=== PATIENT | male | born 1950 | race Caucasian/White ===

== ENCOUNTER → 2017-06-21 | Outpatient (CLI) | payer BC, MEDICARE ==
--- NOTE | 2017-06-23 10:04 | P.ARTDOP ---
Arterial Doppler LOWER EXTREMITY ARTERIAL DOPPLER: DATE OF SERVICE: 06/21/2017 Reason for study: Left leg pain. Doppler waveforms: Multiphasic throughout bilaterally Pulse volume recording: Normal configuration. Pressure gradients: Only at the foot level. Ankle-brachial indices: Greater than 1 bilaterally. Toe pressures: 78 on the right, 45 on the left Impression: Normal study at the ankle and above. Low digital pressures on the left May suggests distal disease on the left but more likely a vasospastic phenomenon. Clinical correlation recommended..
== END | disposition home or self-care (01) ==
LOC: RADUSWWP 08:00
PROVIDERS: ATTEND Physical Medicine & Rehabilitation
DX: M25.571 Pain in right ankle and joints of right foot (principal); M25.572 Pain in left ankle and joints of left foot; R60.0 Localized edema; M54.16 Radiculopathy, lumbar region; M51.36 Other intervertebral disc degeneration, lumbar region; M51.26 Other intervertebral disc displacement, lumbar region; M47.816 Spondylosis without myelopathy or radiculopathy, lumbar region; M43.17 Spondylolisthesis, lumbosacral region
CPT/HCPCS: 93923

== ENCOUNTER → 2018-01-13 | Outpatient (CLI) | payer MEDICARE ==
[2018-01-13 15:22] LABS: Basophils % (A) 1 %; Eosinophils # (A) 0.1 k/uL (0-0.7); Eosinophils % (A) 2 %; HCT 43.7 % (39.0-53.0); HGB 14.8 gm/dL (13.0-17.5); Lymphocytes # (A) 1.3 k/uL (1.0-4.8); Lymphocytes % (A) 22 %; MCH 29.6 pg (25.0-35.0); MCHC 33.9 g/dL (31.0-37.0); MCV 87.5 fL (80.0-100.0); Mean Platelet Volume 6.9; Monocytes # (A) 0.4 k/uL (0-1.0); Monocytes % (A) 7 %; Neutrophils # (A) 3.6 k/uL (1.3-7.7); Neutrophils % (A) 64 %; Platelet Count 246 k/uL (150-450); RDW 13.3 % (11.5-15.5); WBC 5.6 k/uL (3.8-10.6)
[2018-01-13 15:27] LABS: INR 1.1 (<1.2); Partial Thromboplastin Time 24.2 sec (22.0-30.0); Prothrombin Time 10.6 sec (9.0-12.0)
[2018-01-13 15:30] LABS: Anion Gap 12 mmol/L; Appearance,Urine Cloudy (Clear); Bilirubin,Urine Negative (Negative); Blood Urea Nitrogen 13 mg/dL (9-20); Blood,Urine Negative (Negative); Carbon Dioxide 25 mmol/L (22-30); Chloride 103 mmol/L (98-107); Color,Urine Light Yellow; Glucose 102 mg/dL (74-99); Glucose,Urine (UA) Negative (Negative); Ketones,Urine Negative (Negative); Leukocyte Esterase,Urine Negative (Negative); Mucus,Urine Rare /hpf; Nitrite,Urine Negative (Negative); PH, Urine 6.5 (5.0-8.0); Potassium 4.5 mmol/L (3.5-5.1); Protein,Urine Negative (Negative); RBC,Urine <1 /hpf (0-5); Sodium 140 mmol/L (137-145); Specific Gravity,Urine 1.006 (1.001-1.035); Urobilinogen,Urine <2.0 mg/dL (<2.0); WBC,Urine <1 /hpf (0-5)
== END ==
LOC: LABPAT 14:07
PROVIDERS: ATTEND Orthopaedic Surgery Orthopaedic Surgery of the Spine
DX: Z01.818 Encounter for other preprocedural examination (principal); M48.02 Spinal stenosis, cervical region; Z51.81 Encounter for therapeutic drug level monitoring; Z79.01 Long term (current) use of anticoagulants
CPT/HCPCS: 36415; 80048; 81001; 85025; 85610; 85730; 86850; 86900; 86901; 87070

== ENCOUNTER 2018-01-24 09:49 | Inpatient (IN) | payer MEDICARE ==
[2018-01-17 13:07] VITALS: BMI 29.0
[~2018-01-24 09:49] MED LIST: BACITRACIN 50,000 UNIT, POLYMYXIN B 500,000 UNIT in SODIUM CHLORIDE 0.9% IRRIGATIO 1,00... IRRIGATION ONE; HYDROmorphone 0.5 MG/0.5 ML SYRINGE IVP PRN; LIDOCAINE 1% 20 ML VIAL (10MG/ML) FOR IV START INTRADERMA PRN; ONDANSETRON 4 MG/2 ML VIAL IVP ONE; ceFAZolin IN SWFI 2 GM/20 ML SYRINGE IVP ONE
[2018-01-24] MEDS: LACTATED RINGERS 1,000 ML IV SCH (11:49)
[2018-01-24] MEDS ORDERED: SUCCINYLCHOLINE CHLORIDE 100 MG/5 ML SYR IV ONE (12:41)
[2018-01-24] MEDS ORDERED: ePHEDrine SULFATE/0.9% NACL/PF 50 MG/5 ML SYRINGE IV ONE (12:41)
[2018-01-24] MEDS ORDERED: PROPOFOL 10 MG/ML 20 ML VIAL IV ONE (12:41)
[2018-01-24] MEDS ORDERED: LIDOCAINE 1% INJ 10MG/ML (20 ML MDV) ONE (12:41)
[2018-01-24] MEDS ORDERED: DEXAMETHASONE SOD PHOS (MDV) 100 MG/10 ML VIAL ONE (12:41)
[2018-01-24] MEDS ORDERED: NEOSTIGMINE 1 MG/ML 10 ML VIAL ONE (12:41)
[2018-01-24] MEDS ORDERED: fentaNYL (PF) 50 MCG/ML 2 ML AMP ONE (12:41)
[2018-01-24] MEDS ORDERED: ROCURONIUM BROMIDE 10 MG/ML 10 ML VIAL IV ONE (12:41)
[2018-01-24] MEDS ORDERED: GLYCOPYRROLATE 0.2 MG/ML 2 ML VIAL ONE (12:41)
[2018-01-24] MEDS ORDERED: PHENYLEPHRINE-0.9% NACL SYG 1 MG/10 ML SYRINGE ONE (12:41)
[2018-01-24] MEDS ORDERED: MIDAZOLAM 2 MG/2 ML VIAL ONE (12:41)
[2018-01-24] MEDS ORDERED: GELATIN SPONGE,ABSORB (LARGE) 1 EACH SPONGE MISCELLANE ONE (13:19)
[2018-01-24] MEDS ORDERED: BUPIVACAIN-EPI 0.5%-1:200,000 30 ML VIAL SQ ONE ×2 (13:19)
[2018-01-24] MEDS ORDERED: THROMBIN (BOVINE) 5,000 UNIT VIAL MISCELLANE ONE (13:20)
[2018-01-24] MEDS ORDERED: LACTATED RINGERS 1,000 ML IV ONE ×2 (13:48→15:03)
[2018-01-24] MEDS ORDERED: HYDROcodone/APAP 5-325MG 1 EACH TAB PO PRN (15:12)
[2018-01-24] MEDS ORDERED: BENZOCAINE/MENTHOL LOZENG 1 EACH LOZENGE MUCOUS MEM PRN (15:12)
[2018-01-24] MEDS ORDERED: ONDANSETRON 4 MG/2 ML VIAL IVP PRN (15:12)
[2018-01-24] MEDS ORDERED: HYDROmorphone 1 MG/ML 1 ML SYRINGE IVP PRN ×2 (15:12)
[2018-01-24] MEDS ORDERED: SODIUM CHLORIDE 0.9% 1,000 ML IV SCH (15:15)
--- NOTE | 2018-01-24 15:19 | P.OP ---
Date of Procedure: 01/24/18 Preoperative Diagnosis: Severe cervical stenosis C3 4 C4 5 C5 6, cervical myelomalacia, early cervical myelopathy, degenerative disc disease, myeloradiculopathy upper extremities, upper extremity weakness Postoperative Diagnosis: Same Anesthesia: GETA Pathology: none sent Condition: stable Disposition: PACU Description of Procedure: BRIEF OPERATIVE NOTE Preoperative Diagnosis:Severe cervical stenosis C3 4 C4 5 C5 6, cervical myelomalacia, early cervical myelopathy, degenerative disc disease, myeloradiculopathy upper extremities, upper extremity weakness Postoperative Diagnosis: Same Procedure: Anterior cervical decompression with discectomy and fusion C3 4 C4 5 C5 6 Placement of interbody graft C3 4 C4 5 C5 6 Application of anterior cervical plate C3 4 5 6 Surgeon: Dr. Sarmiento Patient Services Representative: Sam SHARMA who is present throughout the entire the case persistence during positioning, dissection, exposure, visualization, and all crucial elements of the case as well as closure. Anesthesia: General anesthesia per Dr. Doran Estimated blood loss: Approximately 100 mL Complications: None apparent Components implanted: K2M anterior cervical plate system with 8 screws and glucose interbody allograft bone graft Disposition: To recovery room in good stable condition. OPERATIVE INDICATIONS The patient has had long-standing issues in their neck and upper extremities. He was having some weakness to his left upper extremity and was showing some signs early cervical myelopathy. His imaging showed severe cervical stenosis with evidence of cervical myelomalacia particular at C3 4 with significant stenosis C4 5 C5 6 as well. The patient has been through conservative treatment. We discussed various treatment options including surgery, and the patient wishes to proceed with surgery We discussed the risk, patient's alternatives and benefits of surgery including but not limited to, risk of bleeding risk of infection, risk of need for further surgery, risk of decreased , loss of motion, muscle function, malunion nonunion, hardware failure, nerve damage, paralysis, heart attack, and . OPERATIVE SUMMARY After discussing all the risks, patient alternatives and benefits at length, the patient elected to proceed with surgical intervention, signed informed consent, and presented for their procedure. The patient was seen and examined in the preoperative holding area and the surgical site was marked. The patient was given antibiotics and brought to the operating room. The patient was positioned on the operating room table in a supine position being careful to pad any bony prominences and pressure points. The patient was sedated and intubated by anesthesia in standard fashion. Once the airway and C- spine were stabilized the patient's arms were padded and tucked at her side, with her shoulders gently taped. The head was placed in a donut pad with the neck in good neutral alignment and position. We were careful to maintain the patient's cervical spine and good neutral alignment and position throughout. The patient was prepped and draped in a normal standard fashion. An appropriate timeout and keystone protocol performed. We were able to proceed with the surgery. The local wound area was infiltrated with local anesthetic. An incision was made transversely approximately 2-1/2 cm over the appropriate levels over C4 5. Dissection was taken down subcutaneously to the level of the platysma which was split in line with its fibers. Dissection was taken with a carotid approach, with the trachea and esophagus medial and the carotid sheath laterally. We dissected down to the anterior surface of the vertebral bodies from C3 to see 6. Intraoperative x-ray was taken which showed a marker at the appropriate level at C4 5. With the appropriate level positively confirmed, we were able to proceed with discectomy at the appropriate levels, starting at C3 4 then moving C4 5 and C5 6. All of the operative levels were exposed appropriately. The patient had all their twitches back, and there was no evidence of recurrent laryngeal issue. The wound was copiously irrigated and suctioned dry as had been done periodically throughout the case. At the appropriate level/levels, starting at C3 4 and then at C4 5 and C5 6, I was able to remove the anterior cervical osteophytes with a rongeur and a high- speed bur. I established an annulotomy with an 11 blade scalpel. A discectomy was performed with a combination of pituitary rongeurs, curettes, a high-speed bur, and Kerrison rongeurs. The posterior longitudinal ligament was taken down as were any posterior osteophytes. Note was made of obvious severe cervical stenosis with disc protrusion and herniation posteriorly causing significant stenosis centrally in his hand and bilateral neural foramen. This was remedied with the decompression and discectomy. This gave good central and bilateral foraminal decompression. There is no evidence of any dural tear or leak. The endplates were prepared with a high-speed bur. With the endplates in good parallel position, I was able to size for the appropriate size interbody graft. The wound was irrigated and suctioned dry the graft was prepared and malleted into position. It had good alignment and position with the anterior surface flush with the anterior surface of the vertebral bodies. This was done similarly the appropriate levels first at C3 4 and then at C4 5 and then at C5 6. With the grafts intact, I was able to measure and contour and appropriate sized plate. The plate was positioned at the midline over the appropriate levels from C3 to C6. Screw holes were established with a hand drill and drill guide. Screws were placed in good alignment and position with excellent bony purchase. They were seated under the locking device. The construct was checked and found to be stable. Intraoperative x-ray was taken which showed good alignment and position of the implants at the appropriate levels. There was no evidence of any dural tear or leak. Good hemostasis was maintained. The wound was copiously irrigated and suctioned dry as had been done periodically throughout the case. The platysma was closed with absorbable suture. The subcutaneous tissue was closed. The subcuticular tissue was closed with absorbable suture. The wound was cleaned and dried and dressed appropriately. A soft cervical collar was placed appropriately. The patient was woken up by anesthesia, extubated, transferred back gently to their hospital bed and brought to the recovery room in good stable condition. The patient will be admitted to the hospital for appropriate postoperative care , medical management and monitoring. We will continue to follow them closely about the postoperative course.
[2018-01-24 15:39] VITALS: RESP 16
--- NOTE | 2018-01-24 15:41 | XR ---
EXAMINATION TYPE: XR cervical spine 1V DATE OF EXAM: 01/24/2018 COMPARISON: NONE HISTORY: Hardware placement TECHNIQUE: One view submitted FINDINGS: Suggestion of an ET tube. Postsurgical change with anterior fixation involving the cervical spine appears in near anatomic alignment. Multilevel facet arthropathy noted there suggestion of deg enerative disc disease involving the cervical spine. IMPRESSION: Postsurgical change
[2018-01-24] MEDS ORDERED: ETODOLAC 200 MG CAPSULE PO SCH (21:00)
[2018-01-24] MEDS: ceFAZolin IN SWFI 2 GM/20 ML SYRINGE IVP SCH (22:22)
[2018-01-24 23:05] VITALS: PULSE 96
[2018-01-25] MEDS: ceFAZolin IN SWFI 2 GM/20 ML SYRINGE IVP SCH (04:16)
[2018-01-25 05:54] VITALS: BP 139/73; TEMP 97.8
[2018-01-25] MEDS: LACTATED RINGERS 1,000 ML IV SCH (06:41)
[2018-01-25] MEDS ORDERED: PANTOPRAZOLE 40 MG TABLET PO SCH (07:30)
--- NOTE | 2018-01-25 08:42 | P.DS ---
Providers Date of admission: 01/24/18 11:02 Expected date of discharge: 01/25/18 Attending physician: Beka Sarmiento Primary care physician: Amadeo Whipple - Discharge Diagnosis(es) (1) Cervical stenosis of spinal canal Current Visit: Yes Status: Acute (2) Myelomalacia of cervical cord Current Visit: Yes Status: Acute (3) Cervical myelopathy with cervical radiculopathy Current Visit: Yes Status: Acute (4) Degenerative disc disease, cervical Current Visit: Yes Status: Acute (5) Upper extremity weakness Current Visit: Yes Status: Acute (6) Status post cervical spinal fusion Current Visit: Yes Status: Acute Hospital Course: This is a pleasant 67-year-old male who presented with C3-4, C4-5, and C5-6 severe spinal cervical stenosis with cervical myelomalacia, early cervical myelopathy, cervical degenerative disc disease, upper extremity weakness, and myeloradiculopathy of the upper extremities who failed outpatient conservative therapy. He was admitted for a C3-4, C4-5, and C5-6 anterior cervical decompression and fusion. The patient tolerated the procedure well and did well postoperatively. His pain has been adequately controlled cervical spine. He does continue to have numbness in bilateral hands. He states pain over the left shoulder has improved already postoperatively. He states he was having some difficulty with ambulation and pain in the right foot which has subsided postoperatively. He feels he is ready for discharge. Condition on day of discharge stable. Patient will be discharged home. Patient was cleared preoperatively for surgery by Dr. Whipple. Patient currently denies any nausea, vomiting, fever, or chills. Patient is eating and voiding freely without difficulty. Patient may shower Tegaderm dressing intact. Patient may remove Tegaderm dressing in 3 days and shower without a dressing at that time. Patient should keep Steri-Strips intact and allow them to fall off naturally. Patient should refrain from driving until at least after their first follow-up appointment in the office. Patient should avoid excessive neck flexion, extension, rotation, and lateral sidebending; no overhead lifting; no lifting greater than 10 pounds. Patient given a prescription for [place] 5 mg/325 mg 1 tablet every 4 hours as needed for pain, dispense #42 to discharge. MAPS has been reviewed on 01/25/2018. Overall overdosed wrist score: 190. An "Opiod Start Talking" form has been signed by the patient and myself. Patient will discontinue Tylenol #3 as previously prescribed. He may resume other prescribed home medications. He should avoid anti-inflammatories over the first 6 weeks postoperatively. Physical Exam on day of discharge: Patient is awake, alert, and oriented 3 Vital signs stable Good chest excursion with deep inspiration and expiration Abdomen soft nontender No signs or symptoms of DVT; no calf pain Full range of motion of the cervical spine with adequate flexion, extension, and bilateral rotation Wage Adjuster strength, thumb strength, interosseous strength, biceps strength, triceps strength, and shoulder strength positive sustained bilaterally Soft cervical collar intact Incision is dry and intact with one small [place] of dried blood; no erythema, purulence, or signs of infection Tegaderm dressing and non-stick Telfa intact Procedures: C3-4, C4-5, and C5-6 anterior cervical decompression and fusion. Patient Condition at Discharge: Stable Plan - Discharge Summary Discharge Rx Participant: No New Discharge Prescriptions: New Hydrocodone/Acetaminophen [[place] 5-325] 1 each PO Q4HR PRN #42 tab PRN Reason: Pain No Action Ascorbic Acid [Vitamin C] 500 mg PO DAILY Tamsulosin [Flomax] 0.4 mg PO DAILY Multivitamins, Thera [Multivitamin (formulary)] 1 tab PO DAILY Fexofenadine HCl [Steffi Allergy] 180 mg PO DAILY Omeprazole 20 mg PO DAILY Glucosamine/Chondr Jaime A Sod [Osteo Bi-Flex Caplet] 1 tab PO DAILY Diclofenac Sodium 50 mg PO BID Cinnamon Bark [Cinnamon] 500 mg PO DAILY Cholecalciferol (Vitamin D3) [Vitamin D3] 2,000 unit PO DAILY Aspirin [Adult Low Dose Aspirin EC] 81 mg PO DAILY Discharge Medication List Ascorbic Acid [Vitamin C] 500 mg PO DAILY 01/17/18 [History] Aspirin [Adult Low Dose Aspirin EC] 81 mg PO DAILY 01/17/18 [History] Cholecalciferol (Vitamin D3) [Vitamin D3] 2,000 unit PO DAILY 01/17/18 [History] Cinnamon Bark [Cinnamon] 500 mg PO DAILY 01/17/18 [History] Diclofenac Sodium 50 mg PO BID 01/17/18 [History] Fexofenadine HCl [Steffi Allergy] 180 mg PO DAILY 01/17/18 [History] Glucosamine/Chondr Jaime A Sod [Osteo Bi-Flex Caplet] 1 tab PO DAILY 01/17/18 [ History] Multivitamins, Thera [Multivitamin (formulary)] 1 tab PO DAILY 01/17/18 [History ] Omeprazole 20 mg PO DAILY 01/17/18 [History] Tamsulosin [Flomax] 0.4 mg PO DAILY 01/17/18 [History] Hydrocodone/Acetaminophen [[place] 5-325] 1 each PO Q4HR PRN #42 tab 01/25/18 [Rx] Follow up Appointment(s)/Referral(s): Sam Ordonez, DINORAH [PHYSICIAN MOLD STACKER] - 2 Weeks (Patient may follow-up with Sam Ordonez PA-C or Dr. Saad Sarmiento at [facility] in 2-3 weeks following discharge. ) Activity/Diet/Wound Care/Special Instructions: 1. Patient may shower with Tegaderm dressing intact. 2. Patient may remove Tegaderm dressing in 3 days and shower without a dressing at that time. 3. Patient should keep Steri-Strips intact and allow them to fall off naturally. 4. Patient should refrain from driving until at least after their first follow- up appointment in the office. 5. Patient should avoid excessive cervical flexion, extension, rotation, and sidebending; avoid overhead lifting; no lifting greater than 10 pounds 6. Take medications as prescribed 7. Do not soak in tub
[2018-01-25] MEDS ORDERED: CHOLECALCIFEROL 1,000 UNIT TAB PO SCH (09:00)
[2018-01-25] MEDS ORDERED: ASCORBIC ACID 500 MG TAB PO SCH (09:00)
[2018-01-25] MEDS ORDERED: SENNOSIDES-DOCUSATE SODIUM 1 EACH TAB PO SCH (09:00)
[2018-01-25] MEDS ORDERED: LORATADINE 10 MG TAB PO SCH (09:00)
[2018-01-25] MEDS ORDERED: TAMSULOSIN 0.4 MG CAP.ER.24H PO SCH (09:00)
[2018-01-25] MEDS ORDERED: ASPIRIN 81 MG PO SCH (09:00)
--- NOTE | 2018-01-25 13:22 | XR ---
EXAMINATION TYPE: XR cervical spine 1V DATE OF EXAM: 01/24/2018 COMPARISON: NONE HISTORY: Spinal stenosis TECHNIQUE: Single crosstable lateral view of cervical spine is obtained intraoperatively. FINDINGS: Image is performed for surgical planning and not diagnostic purposes. Metallic pointer is n oted at the C4-C5 disc space. There is moderate anterior spurring and disc space narrowing below this C5-C6 and C6-C7 levels. There is partial visualization of endotracheal tube. IMPRESSION: As above
--- NOTE | 2018-01-26 13:23 | CDI ---
Last Revision, April 2017 Documentation Clarification Form Date: 01/26/18 From: Marielle Darrian Tamar Chisholm, Assessment Consultant Hours-8:30 am & 5 pm Ravi Admit Date: 01/24/2018 11:02:00 AM Patient Name: Raul Enamorado Visit Number: [id number] Discharge Date: 01/25/18 ATTENTION: The Clinical Documentation Specialists (CDI) and [facility] Coding Staff appreciate your assistance in clarifying documentation. Please respond to the clarification below the line at the bottom and electronically sign. The CDI & [facility] Coding staff will review the response and follow-up if needed. Please note: Queries are made part of the Legal Health Record. If you have any questions, please contact the author of this message via ITS. Dr. SANTOS, Documentation in the Operative Report included: With the appropriate level positively confirmed, we were able to proceed with discectomy at appropriate levels, starting at C3 4 then moving C4 5 and C5 6. Pre-Operative Diagnosis: Severe cervical stenosis C3-4, C4-5 & C5-6, cervical myelomalacia, early cervical myelopathy, DDD, myeloradiculopathy upper extremities, upper extremity weakness Postoperative Diagnosis: same Treatment: anterior cervical decompression with discectomy and fusion C3-4, C4- 5 & C5-6; placement of interbody graft C3-4, C4-5 & C5-6; application of anterior cervcal plate C3 4 5 6. In order to capture the severity of condition, please specify the following: Partial discectomy Complete discectomy Other Please note that the discectomy at C3 4 C4 5 and C5 6 were all complete discectomies for purposes of decompression and preparation of the disc space for fusion MTDD
== END 2018-01-25 10:14 | disposition home or self-care (01) | DRG 472 ==
LOC: 2ORMAIN 11:02 → 5ONC 15:14
PROVIDERS: ADMIT Orthopaedic Surgery Orthopaedic Surgery of the Spine; ATTEND Orthopaedic Surgery Orthopaedic Surgery of the Spine
PROC: 0RT30ZZ Resection of Cervical Vertebral Disc, Open Approach (ICD-10-PCS; 2018-01-24)
PROC: 0RG20A0 Fusion of 2 or more Cervical Vertebral Joints with Interbody Fusion Device, Anterior Approach, Anterior Column, Open Approach (ICD-10-PCS; principal; 2018-01-24 13:00)
DX: M48.02 Spinal stenosis, cervical region (principal); G95.89 Other specified diseases of spinal cord; M50.01 Cervical disc disorder with myelopathy, high cervical region; M50.11 Cervical disc disorder with radiculopathy, high cervical region; G47.33 Obstructive sleep apnea (adult) (pediatric); E55.9 Vitamin D deficiency, unspecified; E29.1 Testicular hypofunction; I73.9 Peripheral vascular disease, unspecified; K21.9 Gastro-esophageal reflux disease without esophagitis; M79.671 Pain in right foot; N40.0 Benign prostatic hyperplasia without lower urinary tract symptoms; M54.5 Low back pain; J30.9 Allergic rhinitis, unspecified; H91.90 Unspecified hearing loss, unspecified ear; M19.032 Primary osteoarthritis, left wrist; Z79.82 Long term (current) use of aspirin; Z79.899 Other long term (current) drug therapy; Z88.8 Allergy status to other drugs, medicaments and biological substances; Z83.3 Family history of diabetes mellitus; Z82.49 Family history of ischemic heart disease and other diseases of the circulatory system
CPT/HCPCS: 72020; 86850; 86900; 86901

== ENCOUNTER 2018-02-25 18:47 | Emergency (ER) | payer MEDICARE ==
[2018-02-25 19:22] VITALS: BP 160/90; PULSE 78; RESP 16; TEMP 98.5
--- NOTE | 2018-02-25 19:38 | ED ---
General Adult HPI - General Chief complaint: Extremity Injury, Upper Stated complaint: left shoulder pain Time Seen by Provider: 02/25/18 19:23 Source: patient, RN notes reviewed Mode of arrival: ambulatory Limitations: no limitations - History of Present Illness Initial comments: Patient is a 67-year-old male with chronic shoulder pain who presents the emergency department with complaints of worsened left shoulder pain since this morning. He reports taking one extra strength Tylenol at 10 am and using a pain patch. He reports that he had neck surgery a month ago for a pinched nerve and stenosis in his neck. He also reports feeling a bit "queasy" and anxious. He also reports tingling into both hands that is chronic. He denies any history of heart attacks. Patient denies any recent trauma, fever, chills, shortness of breath, chest pain, back pain, abdominal pain, vomiting, numbness, headaches or visual changes, or any other complaints. - Related Data Home Medications Medication Instructions Recorded Confirmed Ascorbic Acid [Vitamin C] 500 mg PO DAILY 01/17/18 01/24/18 Aspirin [Adult Low Dose Aspirin EC] 81 mg PO DAILY 01/17/18 01/24/18 Cholecalciferol (Vitamin D3) 2,000 unit PO DAILY 01/17/18 01/24/18 [Vitamin D3] Cinnamon Bark [Cinnamon] 500 mg PO DAILY 01/17/18 01/24/18 Diclofenac Sodium 50 mg PO BID 01/17/18 01/24/18 Fexofenadine HCl [Steffi Allergy] 180 mg PO DAILY 01/17/18 01/24/18 Glucosamine/Chondr Jaime A Sod [Osteo 1 tab PO DAILY 01/17/18 01/24/18 Bi-Flex Caplet] Multivitamins, Thera [Multivitamin 1 tab PO DAILY 01/17/18 01/24/18 (formulary)] Omeprazole 20 mg PO DAILY 01/17/18 01/24/18 Tamsulosin [Flomax] 0.4 mg PO DAILY 01/17/18 01/24/18 Previous Rx's Medication Instructions Recorded Hydrocodone/Acetaminophen [[place] 1 each PO Q4HR PRN #42 tab 01/25/18 5-325] Allergies Allergy/AdvReac Type Severity Reaction Status Date / Time celecoxib [From Celebrex] AdvReac BLE EDEMA Verified 02/25/18 19:22 Review of Systems ROS Statement: Those systems with pertinent positive or pertinent negative responses have been documented in the HPI. ROS Other: All systems not noted in ROS Statement are negative. Past Medical History Past Medical History: GERD/Reflux, Osteoarthritis (OA), Prostate Disorder History of Any Multi-Drug Resistant Organisms: None Reported Past Surgical History: Hernia Repair, Orthopedic Surgery Additional Past Surgical History / Comment(s): LASER SX FOR BILAT VARICOSE VEINS. COLONOSCOPY. BILAT CTR Past Anesthesia/Blood Transfusion Reactions: Previous Problems w/ Anesthesia Additional Past Anesthesia/Blood Transfusion Reaction / Comment(s): HAD 2 HOURS EPISODE OF SNEEZING AFTER 2ND CTR Past Psychological History: No Psychological Hx Reported Smoking Status: Never smoker Past Alcohol Use History: None Reported Past Drug Use History: None Reported - Past Family History Sister(s) Family Medical History: Cancer General Exam Limitations: no limitations General appearance: alert, in no apparent distress Head exam: Present: atraumatic, normocephalic Eye exam: Present: normal appearance, PERRL, EOMI ENT exam: Present: normal oropharynx Neck exam: Present: normal inspection, tenderness (Tenderness to palpation over the left-sided musculature.), full ROM Respiratory exam: Present: normal lung sounds bilaterally Cardiovascular Exam: Present: regular rate, normal rhythm, normal heart sounds, other (Radial pulses palpable and strong bilaterally.) GI/Abdominal exam: Present: soft, normal bowel sounds Extremities exam: Present: normal inspection, full ROM, other (Left shoulder exam: Full ROM, no tenderness to palpation.) Back exam: Present: normal inspection Neurological exam: Present: alert, oriented X3, CN II-XII intact Skin exam: Present: warm, dry Course Vital Signs 02/25/18 19:19 Temperature 98.5 F Pulse Rate 78 Respiratory 16 Rate Blood Pressure 160/90 O2 Sat by Pulse 97 Oximetry Medical Decision Making - Medical Decision Making Patient is a 67-year-old male who presents with complaint of chronic left shoulder pain with worsened pain today. There is no need for imaging at this time as there was no recent trauma. He has a history of compressed nerve in his neck and had surgery a month ago. He has an appointment scheduled with his orthopedic doctor early next month. He reports that his surgeon told him not to take ibuprofen or aspirin. He was given Tylenol here. EKG is normal. Case discussed in detail with attending physician Dr. Persaud. Disposition Clinical Impression: Chronic left shoulder pain Disposition: HOME SELF-CARE Condition: Good Instructions: Shoulder Pain (ED) Additional Instructions: Follow-up with PCP in 2 days. Keep your appointment with your orthopedic physician. Return to emergency department if symptoms worsen or any other concerns. Is patient prescribed a controlled substance at d/c from ED?: No Referrals: Amadeo Whipple MD [Primary Care Provider] - 1-2 days Time of Disposition: 20:48
[2018-02-25] MEDS ORDERED: ACETAMINOPHEN TAB 500 MG TAB PO STA (20:07)
== END 2018-02-25 20:57 | disposition home or self-care (01) ==
LOC: EC 18:47
DX: M25.512 Pain in left shoulder (principal); G89.29 Other chronic pain; K21.9 Gastro-esophageal reflux disease without esophagitis; M19.90 Unspecified osteoarthritis, unspecified site; N42.9 Disorder of prostate, unspecified; Z79.82 Long term (current) use of aspirin; Z79.899 Other long term (current) drug therapy; Z88.6 Allergy status to analgesic agent
CPT/HCPCS: 99283

== ENCOUNTER → 2019-10-27 | Outpatient (CLI) | payer MEDICARE ==
[~2019-10-27] MED LIST changes: -BACITRACIN 50,000 UNIT, POLYMYXIN B 500,000 UNIT in SODIUM CHLORIDE 0.9% IRRIGATIO 1,00... IRRIGATION ONE; +DOBUTamine 250 MG in DEXTROSE 5% IN WATER 250 ML IV ONE; +DOBUTamine DRIP for NUC MED 500 MG in DEXTROSE/WATER 1 250ML.BAG IV ONE; -HYDROmorphone 0.5 MG/0.5 ML SYRINGE IVP PRN; -LIDOCAINE 1% 20 ML VIAL (10MG/ML) FOR IV START INTRADERMA PRN; -ONDANSETRON 4 MG/2 ML VIAL IVP ONE; -ceFAZolin IN SWFI 2 GM/20 ML SYRINGE IVP ONE
--- NOTE | 2019-10-27 14:20 | EST ---
EXERCISE STRESS DATE OF SERVICE: 10/27/2019 AGE: 69 SEX: M HT: 72" WT: 224 lbs PROTOCOL: Dobutamine Stress Echo STAGE: DURATION OF EXERCISE: HEART RATE REST: 77 BLOOD PRESSURE REST: 129/95 MAXIMUM HEART RATE ACHIEVED: 137 MAXIMUM BLOOD PRESSURE: 188/30 85% MPHR: 128 100% MPHR: 150 METS: INDICATIONS: Chest pain. STRESS DATA: Heart rate 77, pressure is 139/95 mmHg. Baseline EKG showed sinus mechanism. Dobutamine infusion at a dose of 10 mcg/kg per minute was initiated and increased to 30 mcg/kg per minute per protocol. Max heart rate was 137 which is about 91% of maximum predicted heart rate and maximum blood pressure was 188/30 mmHg. Clinically the patient did not have no symptoms. The EKG did not show any significant ST or T-wave abnormalities. There was some PVCs noted. Analysis and echocardiogram images from parasternal long axis view, parasternal short axis view, apical 4 chamber and apical 2 chamber were obtained as the baseline images, at the peak of the heart rate as well as on recovery. The echocardiogram images did not show any evidence of wall motion abnormalities concerning for ischemia. CONCLUSION: 1. Normal EKG in response to dobutamine. 2. Normal echocardiogram in response to dobutamine. 3. Essentially normal dobutamine stress echocardiogram. MMODL / IJN: [id number] /
== END | disposition home or self-care (01) ==
LOC: RADNMMAIN 09:39
PROVIDERS: ATTEND Internal Medicine
DX: R94.31 Abnormal electrocardiogram [ECG] [EKG] (principal)
CPT/HCPCS: 93351; J1250

== ENCOUNTER → 2019-11-20 | Outpatient (CLI) | payer MEDICARE ==
--- NOTE | 2019-11-20 12:55 | US ---
EXAMINATION TYPE: US venous doppler duplex LE LT DATE OF EXAM: 11/20/2019 12:35 PM COMPARISON: NONE CLINICAL HISTORY: M79.605 PAIN IN LT LEG. pain yesterday after sitting all day, no swelling, no h/o d vt SIDE PERFORMED: Left TECHNIQUE: The lower extremity deep venous system is examined utilizing real time linear array sonog sarah with graded compression, doppler sonography and color-flow sonography. VESSELS IMAGED: External Iliac Vein (EIV) Common Femoral Vein Deep Femoral Vein Greater Saphenous Vein * Femoral Vein Popliteal Vein Small Saphenous Vein * Proximal Calf Veins (* superficial vessels) There is normal flow, compressibility, vascular waveforms. Left Leg: Negative for DVT *tech impression given to medical imaging director voice mail IMPRESSION: No evident deep venous thrombosis at or above the knee.
== END | disposition home or self-care (01) ==
LOC: RADUSWWP 12:16
PROVIDERS: ATTEND Internal Medicine
DX: M79.605 Pain in left leg (principal)

== ENCOUNTER → 2020-06-25 | Outpatient (CLI) | payer MEDICARE | END | disposition home or self-care (01) | LOC: CPPFTMAIN 10:15 | PROVIDERS: ATTEND Internal Medicine | DX: R06.00 Dyspnea, unspecified (principal) | CPT/HCPCS: 94060; 94726; 94729 ==

== ENCOUNTER 2021-01-24 09:11 | Day surgery (SDC) | payer MEDICARE ==
[2021-01-23 09:31] VITALS: BMI 30.4
[~2021-01-24 09:11] MED LIST changes: +DEXAMETHASONE SOD PHOSPHATE 4 MG/ML 1 ML VIAL IV ONE; -DOBUTamine 250 MG in DEXTROSE 5% IN WATER 250 ML IV ONE; -DOBUTamine DRIP for NUC MED 500 MG in DEXTROSE/WATER 1 250ML.BAG IV ONE; +HYDROmorphone 0.5 MG/0.5 ML SYRINGE IVP PRN; +LACTATED RINGERS 1,000 ML IV SCH; +MIDAZOLAM 2 MG/2 ML VIAL IV PRN; +ONDANSETRON 4 MG/2 ML VIAL IVP ONE
[2021-01-24] MEDS ORDERED: MIDAZOLAM 2 MG/2 ML VIAL IV ONE (11:02)
[2021-01-24] MEDS ORDERED: fentaNYL (PF) 50 MCG/ML 2 ML AMP IV ONE (11:02)
[2021-01-24] MEDS ORDERED: LABETALOL 5 MG/ML VIAL MDV ONE (12:26)
[2021-01-24] MEDS ORDERED: fentaNYL (PF) 50 MCG/ML 2 ML AMP ONE ×2 (12:26)
[2021-01-24] MEDS ORDERED: SODIUM CHLORIDE 0.9% (PF) 10 ML VIAL ONE (12:26)
[2021-01-24] MEDS ORDERED: LIDOCAINE 1% INJ 10MG/ML (20 ML MDV) ONE (12:26)
[2021-01-24] MEDS ORDERED: SUCCINYLCHOLINE CHLORIDE 100 MG/5 ML SYR IV ONE (12:26)
[2021-01-24] MEDS ORDERED: ROPIVACAINE 5 MG/ML 30 ML VIAL ONE (12:26)
[2021-01-24] MEDS ORDERED: MIDAZOLAM 2 MG/2 ML VIAL ONE (12:26)
[2021-01-24] MEDS ORDERED: HYDROmorphone (PF) 1 MG/ML ONE (12:26)
[2021-01-24] MEDS ORDERED: PROPOFOL 10 MG/ML 20 ML VIAL IV ONE (12:26)
[2021-01-24] MEDS ORDERED: LACTATED RINGERS 1,000 ML IV ONE (13:05)
[2021-01-24 15:21] VITALS: TEMP 97.7
[2021-01-24 16:03] VITALS: RESP 16
--- NOTE | 2021-01-24 16:55 | FL ---
EXAMINATION TYPE: FL guidance operating room, XR ankle limited RT DATE OF EXAM: 01/24/2021 CLINICAL HISTORY: Pain. TECHNIQUE: Fluoroscopy. Intraoperative limited views right ankle. COMPARISON: None. FINDINGS: Fluoroscopic guidance was provided during procedure performed by Dr. Sawyer. A total of 43 seconds of fluoroscopic time was utilized during the procedure and two spot intraoperative images ar e acquired. Intraoperative images obtained show to large fixating screws through the talocalcaneal joint and fixa ting plate anterior aspect talus to the navicular bone on lateral projection. IMPRESSION: As Above.
--- NOTE | 2021-01-24 17:43 | P.ANPRN ---
Procedure Note - Anesthesia - Nerve Block Performed Right Popliteal Single Time Out Performed: Yes (1100) Date of Procedure: 01/24/21 Procedure Start Time: 11:02 Procedure Stop Time: 11:07 Location of Patient: PreOp Indication: Acute Post-Operative Pain, Requested by Surgeon Specifically requested for management of pain by DrThao: Obinna Sawyer Sedation Type: Sedate with meaningful contact maintained Preparation: Sterile Prep Position: Left Lateral Catheter: None Needle Types: Pajunk Needle Gauge: 21 Ultrasound used to visualize needle placement: Yes Ultrasound used to observe medication spread: Yes Injectate: 0.5% Ropivacaine (see comment for volume) (15cc + nacl 15cc pf) Blood Aspirated: No Pain Paresthesia on Injection Noted: No Resistance on Injection: Normal Image Stored and Saved: Yes Events: Uneventful and Well Tolerated Right Adductor Canal Single Time Out Performed: Yes (1100) Date of Procedure: 01/24/21 Procedure Start Time: 11:08 Procedure Stop Time: 11:13 Location of Patient: PreOp Indication: Acute Post-Operative Pain, Requested by Surgeon Specifically requested for management of pain by Dr.: Obinna Sawyer Sedation Type: Sedate with meaningful contact maintained Preparation: Sterile Prep Position: Supine Catheter: None Needle Types: Pajunk Needle Gauge: 21 Ultrasound used to visualize needle placement: Yes Ultrasound used to observe medication spread: Yes Injectate: 0.5% Ropivacaine (see comment for volume) (15cc + nacl 15cc pf) Blood Aspirated: No Pain Paresthesia on Injection Noted: No Resistance on Injection: Normal Image Stored and Saved: Yes Events: Uneventful and Well Tolerated
[2021-01-24 18:13] VITALS: BP 143/74; PULSE 88
--- NOTE | 2021-01-27 16:49 | OP ---
OPERATIVE REPORT DATE OF SURGERY: 01/24/2021. PREOP DIAGNOSIS: Right foot deformity. POSTOP DIAGNOSIS: Right foot deformity. PROCEDURE PERFORMED: 1. Talonavicular to reduce right foot. 2. Subtalar arthrodesis, right foot. SURGEON: Obinna Sawyer DPM. ANESTHESIA: General with preop nerve block. Hemostasis right thigh tourniquet to 250 mmHg. ESTIMATED BLOOD LOSS: Minimal. MATERIALS: 1. Talonavicular arthrodesis plate. 2. 7.0 cannulated screws and DBM bone putty. INJECTABLES: None. SPECIMENS: None. COMPLICATIONS: None. OPERATIVE REPORT: Prior to the patient being brought to the operating room, Anesthesia administered a nerve block to the right lower extremity under ultrasonic guidance utilizing mild sedation. The patient was brought into the operating room, placed on table in supine position. A time-out was taken to confirm correct patient identifiers, correct site of surgery, correct procedure. When the room was in agreement, the patient was placed under general anesthesia. A well-padded tourniquet was placed on the right thigh and then the right leg was prepped and draped in usual manner. The right leg was exsanguinated. The knee slightly flexed. The tourniquet inflated to 250 mmHg. Attention was first directed over the lateral side of the hind foot where sinus tarsi incision was made. This was deepened down to the subcutaneous tissue careful to identify bony retracting neurovascular structures and cauterize any bleeding vessels. Dissection was carried down to the joint capsule over the subtalar joint, which was incised and then the posterior facet was visible and was distracted with the pin distractor and with a combination of curettes and sharp gouges. The articular cartilage on the talus and the calcaneus was removed past the subchondral bone in the bleeding medullary bone. Because of the patient's fairly fixed deformity, the talonavicular joint, hindfoot could not be corrected. Therefore, the subtalar site was packed with saline moistened gauze and then attention was directed over the medial aspect of the foot where incision was made over the talonavicular joint. It was deepened down to the subcutaneous tissue careful to identify avoid retracting neurovascular structures and cauterize any bleeding vessels. Dissection was carried down to the capsule of the talonavicular joint at which point it was incised and reflected dorsally and plantarly to expose the entirety of the joint. Various joint prep instruments were used to remove all the articular cartilage down to bleeding medullary bone and then utilizing a 2-0 drill bit all the surfaces of both subtalar and talonavicular joint were fenestrated with a 2-0 drill bit. All wounds were thoroughly irrigated with antibiotic saline. The fixation was done on the talonavicular joint first. The bone graft substitute was placed between the arthrodesis segments and then the foot was held in correction with the hind foot near vertical and the midfoot deformity corrected. The temporary guidewire was placed across the arthrodesis site to maintain the positioning and Nova step-off talonavicular arthrodesis plate was then positioned and the proximal locking screws placed into the talus. The distal locking/compression screws were done distally into the navicular. They were advanced until the area compressed. Fluoroscopic imaging showed proper placement of the hardware with correction of the midfoot alignment and then attention was directed over the subtalar joint fusion site, which was also packed with the bone graft substitute and the guidewires for the 7.0 cannulated screws were placed on the posterior plantar aspect of the calcaneus distal to the Achilles tendon insertion, but away from the weightbearing surface. The first wire was advanced until it was into the talar body and the second wire was then parallel to the first. Pin position was checked both lateral AP and oblique views and both crossed the subtalar joint but did not enter into the ankle joint. The areas were over drilled and the screws inserted to the gauge the cortex of the calcaneus and provided compression across the subtalar joint fusion site. Final fluoroscopic images showed the proper placement of the hardware with corrected structure of the foot. All wounds were thoroughly irrigated with antibiotic saline. The capsular closure was achieved with 0-Vicryl, subcutaneous closed with 4-0 Monocryl. Skin closed with stainless steel kate. The foot was then placed to the neutral position. There was no significant abnormal elevation of the medial column, so a Cotton osteotomy was required and also too even with the tourniquet inflated, there was adequate ankle joint dorsiflexion with knee straight and so gastroc resection was not performed. Jump-start dressings applied over the medial lateral foot incisions and covered with a bulky dry dressing. The tourniquet was released and capillary refill returned to all digits of the right foot. Then, the patient was placed in a well- padded well-molded plaster posterior mold sugar-tong splint which was held in neutral position until it dried. Then, the patient was reversed from general anesthesia and taken to recovery with vital signs stable. KULDIP / CHRISTINE: [id number] /
== END 2021-01-24 18:20 | disposition home or self-care (01) ==
LOC: OR 09:11
PROVIDERS: ATTEND Podiatrist
DX: M21.961 Unspecified acquired deformity of right lower leg (principal); K21.9 Gastro-esophageal reflux disease without esophagitis; Z79.890 Hormone replacement therapy
CPT/HCPCS: 28725; 64447; 64445; 76942; 73600; C1713; J2250; J1100; J0690; J2405; J2001; J3010; J1170; J2795; J0330; J2704

== ENCOUNTER 2022-08-17 14:44 | Observation (INO) | payer MEDICARE ==
--- NOTE | 2022-08-17 15:24 | ED ---
General Adult HPI - General Chief complaint: Chest Pain Stated complaint: Chest Pain Time Seen by Provider: 08/17/22 14:50 Source: patient Mode of arrival: EMS Limitations: no limitations - History of Present Illness Initial comments: Dictation was produced using [employer] dictation software. please excuse any grammatical, word or spelling errors. Chief Complaint: 72-year-old male presents emergency by for chest pain History of Present Illness: Patient is 72-year-old male he has known history of coronary artery disease. Patient scheduled to have coronary artery bypass grafting next month. At work he was at rest when all was said and he felt burning sensation to his left lower anterior chest. Patient also was told that he seemed pale. Patient denies any radiation of symptoms. Denies any diaphoresis. No associated nausea. EMS was called patient is given aspirin (symptoms resolved. Patient denies any symptoms at the bedside currently. Patient states that he had a catheterization performed due to dyspnea. That's when his coronary artery disease was discovered. Present decided that patient would need bypass grafting. Patient denies any history of myocardial infarction. The ROS documented in this emergency department record has been reviewed and confirmed by me. Those systems with pertinent positive or negative responses have been documented in the HPI. All other systems are other negative and/or noncontributory. - Related Data Home Medications Medication Instructions Recorded Confirmed Ascorbic Acid [Vitamin C] 1,000 mg PO HS 01/17/18 08/17/22 Aspirin [Adult Low Dose Aspirin EC] 81 mg PO HS 01/17/18 08/17/22 Omeprazole 20 mg PO DAILY 01/17/18 08/17/22 Garlic 1 tab PO HS 01/23/21 08/17/22 Mv-Mn/C/Glutamin/Lysin/[id number] 1 tablet PO DAILY 01/23/21 08/17/22 [Airborne Gummies] Saw Burton 500 mg PO HS 01/23/21 08/17/22 Cholecalciferol [Vitamin D3 (25 50 mcg PO HS 08/17/22 08/17/22 Mcg = 1000 Iu)] Diclofenac Sodium 50 mg PO BID 08/17/22 08/17/22 Losartan [Cozaar] 25 mg PO DAILY 08/17/22 08/17/22 Magnesium 250 mg PO HS 08/17/22 08/17/22 Metoprolol Succinate [Metoprolol 25 mg PO DAILY 08/17/22 08/17/22 Succinate ER] Rosuvastatin [Crestor] 20 mg PO HS 08/17/22 08/17/22 Allergies Allergy/AdvReac Type Severity Reaction Status Date / Time celecoxib [From Celebrex] AdvReac BLE EDEMA Verified 01/24/21 09:35 Review of Systems ROS Statement: Those systems with pertinent positive or pertinent negative responses have been documented in the HPI. ROS Other: All systems not noted in ROS Statement are negative. Past Medical History Past Medical History: GERD/Reflux, Hearing Disorder / Deafness, Osteoarthritis (OA), Prostate Disorder Additional Past Medical History / Comment(s): SOB with activity recently. Hard of Hearing left ear. History of Any Multi-Drug Resistant Organisms: None Reported Past Surgical History: Hernia Repair, Orthopedic Surgery Additional Past Surgical History / Comment(s): LASER SX FOR BILAT VARICOSE VEINS, COLONOSCOPY, BILATERAL CTR, neck fusion. Past Anesthesia/Blood Transfusion Reactions: Previous Problems w/ Anesthesia Additional Past Anesthesia/Blood Transfusion Reaction / Comment(s): HAD 2 HOURS EPISODE OF SNEEZING AFTER 2ND CTR. After neck surgery had sinus issue. Past Psychological History: No Psychological Hx Reported Smoking Status: Never smoker Past Alcohol Use History: None Reported Past Drug Use History: None Reported - Past Family History Sister(s) Family Medical History: Cancer General Exam - General Exam Comments Initial Comments: PHYSICAL EXAM: General Impression: Alert and oriented x3, not in acute distress HEENT: Normocephalic atraumatic, extra-ocular movements intact, pupils equal and reactive to light bilaterally, mucous membranes moist. Cardiovascular: Heart regular rate and rhythm Chest: Able to complete full sentences, no retractions, no tachypnea Abdomen: abdomen soft, non-tender, non-distended, no organomegaly Musculoskeletal: Pulses present and equal in all extremities, no peripheral edema Motor: no focal deficits noted Neurological: CN II-XII grossly intact, no focal motor or sensory deficits noted Skin: Intact with no visualized rashes Psych: Normal affect and mood Limitations: no limitations Course Vital Signs 08/17/22 08/17/22 14:47 15:53 Temperature 97 F L Pulse Rate 70 70 Respiratory 18 18 Rate Blood Pressure 177/92 136/74 O2 Sat by Pulse 98 Oximetry EKG Findings - EKG Comments: EKG Findings:: My EKG interpretation: Ventricular rate 65, sinus rhythm,. 162, QRS 106, QTC 403. No MT prolongation, no QTC prolongation, no ST or T-wave changes noted. Overall, this EKG is unremarkable Medical Decision Making - Medical Decision Making Was pt. sent in by a medical professional or institution (ZACHARY Tse, INSTANT P[employer] PROCESSING SUPERVISOR, urgent care, hospital, or fpc...) When possible be specific @ -No Did you speak to anyone other than the patient for history (EMS, parent, family, police, friend...)? What history was obtained from this source @ -EMS, family members at bedside who confirm HPI Did you review nursing and triage notes (agree or disagree)? Why? @ -I reviewed and agree with nursing and triage notes Were old charts reviewed (outside hosp., previous admission, EMS record, old EKG, old radiological studies, urgent care reports/EKG's, fpc records)? Report findings @ -No old charts were reviewed Differential Diagnosis (chest pain, altered mental status, abdominal pain women, abdominal pain men, vaginal bleeding, musculoskeletal, weakness, fever, dyspnea, syncope, headache, dizziness, GI bleed, back pain, seizure, CVA, palpatations, mental health)? @ -Differential Chest Pain: Stable Angina, Unstable Angina, STEMI, NSTEMI Aortic Dissection, Pneumothorax, Musculoskeletal, Esophageal Spasm GERD, Cholecystitis, Pancreatitis, Zoster, this is not meant to be an all-inclusive list. EKG interpreted by me (3pts min.). @ -See above X-rays interpreted by me (1pt min.). @ -Nonacute CT interpreted by me (1pt min.). @ -None done U/S interpreted by me (1pt. min.). @ -None done What testing was considered but not performed or refused? (CT, X-rays, U/S, labs)? Why? @ -None What meds were considered but not given or refused? Why? @ -None Did you discuss the management of the patient with other professionals (anastacio fernandes iThaoeZACHARY [address] IN[employer] PROCESSING SUPERVISOR, lab, RT, psych nurse, manager social media, floodplain manager, teacher, juvenile justice officer, shoe parts caser)? Give summary @ -With sound hospitalist for admission Was smoking cessation discussed for >3mins.? @ -No Was critical care preformed (if so, how long)? @ -No Were there social determinants of health that impacted care today? How? (Homelessness, low income, unemployed, alcoholism, drug addiction, transportation, low edu. Level, literacy, decrease access to med. care, intermediate, re hab)? @ -No Was there de-escalation of care discussed even if they declined (Discuss DNR or withdrawal of care, Hospice)? DNR status @ -No What co-morbidities impacted this encounter? (DM, HTN, Smoking, COPD, CAD, Cancer, CVA, ARF, Chemo, Hep., AIDS, mental health diagnosis, sleep apnea, morbid obesity)? @ -Coronary artery disease Was patient admitted / discharged? Hospital course, mention meds given and route, prescriptions, significant lab abnormalities, going to OR and other per tinent info. @ -72-year-old male presents to emergency room for chest pain. He is high risk features. EKG negative. Troponins negative. EKG is unremarkable. Patient observed in emergency department reevaluated at 5:15 PM the continues to deny any chest symptoms. Patient admitted for observation for cardiac monitoring Undiagnosed new problem with uncertain prognosis? @ -No Drug Therapy requiring intensive monitoring for toxicity (Heparin, Nitro, Insulin, Cardizem)? @ -No Were any procedures done? @ -No Diagnosis/symptom? Acute, or Chronic, or Acute on Chronic? Uncomplicated (without systemic symptoms) or Complicated (systemic symptoms)? @ -1. Chest pain Side effects of treatment? @ - Exacerbation, Progression, or Severe Exacerbation? @ -No Poses a threat to life or bodily function? How? (Chest pain, [place], [place], pneumonia, PE, COPD, DKA, ARF, appy, cholecystitis, CVA, Diverticulitis, Homicidal, Suicidal, threat to staff... and all critical care pts) @ -yes - Lab Data Result diagrams: 08/17/22 14:57 08/17/22 14:57 Lab Results 08/17/22 08/17/22 08/17/22 Range/Units 14:57 14:57 14:57 WBC 6.6 (3.8-10.6) k/uL RBC 5.08 (4.30-5.90) m/uL Hgb 15.3 (13.0-17.5) gm/dL Hct 43.9 (39.0-53.0) % MCV 86.4 (80.0-100.0) fL MCH 30.1 (25.0-35.0) pg MCHC 34.8 (31.0-37.0) g/dL RDW 13.2 (11.5-15.5) % Plt Count 269 (150-450) k/uL MPV 8.4 Neutrophils % (Manual) 71 % Lymphocytes % (Manual) 21 % Monocytes % (Manual) 3 % Eosinophils % (Manual) 5 % Neutrophils # (Manual) 4.69 (1.3-7.7) k/uL Lymphocytes # (Manual) 1.39 (1.0-4.8) k/uL Monocytes # (Manual) 0.20 (0-1.0) k/uL Eosinophils # (Manual) 0.33 (0-0.7) k/uL Nucleated RBCs 0 (0-0) /100 WBC Manual Slide Review Performed PT 11.3 (9.0-12.0) sec INR 1.1 (<1.2) APTT 24.3 (22.0-30.0) sec Sodium 139 (137-145) mmol/L Potassium 4.2 (3.5-5.1) mmol/L Chloride 104 (98-107) mmol/L Carbon Dioxide 26 (22-30) mmol/L Anion Gap 9 mmol/L BUN 15 (9-20) mg/dL Creatinine 0.85 (0.66-1.25) mg/dL Est GFR (CKD-EPI)AfAm >90 (>60 ml/min/1.73 sqM) Est GFR (CKD-EPI)NonAf 87 (>60 ml/min/1.73 sqM) Glucose 102 H (74-99) mg/dL Calcium 8.6 (8.4-10.2) mg/dL Magnesium 2.1 (1.6-2.3) mg/dL Total Bilirubin 0.5 (0.2-1.3) mg/dL AST 32 (17-59) U/L ALT 31 (4-49) U/L Alkaline Phosphatase 82 (38-126) U/L Troponin I (0.000-0.034) ng/mL Total Protein 7.3 (6.3-8.2) g/dL Albumin 4.2 (3.5-5.0) g/dL 08/17/22 Range/Units 14:57 WBC (3.8-10.6) k/uL RBC (4.30-5.90) m/uL Hgb (13.0-17.5) gm/dL Hct (39.0-53.0) % MCV (80.0-100.0) fL MCH (25.0-35.0) pg MCHC (31.0-37.0) g/dL RDW (11.5-15.5) % Plt Count (150-450) k/uL MPV Neutrophils % (Manual) % Lymphocytes % (Manual) % Monocytes % (Manual) % Eosinophils % (Manual) % Neutrophils # (Manual) (1.3-7.7) k/uL Lymphocytes # (Manual) (1.0-4.8) k/uL Monocytes # (Manual) (0-1.0) k/uL Eosinophils # (Manual) (0-0.7) k/uL Nucleated RBCs (0-0) /100 WBC Manual Slide Review PT (9.0-12.0) sec INR (<1.2) APTT (22.0-30.0) sec Sodium (137-145) mmol/L Potassium (3.5-5.1) mmol/L Chloride (98-107) mmol/L Carbon Dioxide (22-30) mmol/L Anion Gap mmol/L BUN (9-20) mg/dL Creatinine (0.66-1.25) mg/dL Est GFR (CKD-EPI)AfAm (>60 ml/min/1.73 sqM) Est GFR (CKD-EPI)NonAf (>60 ml/min/1.73 sqM) Glucose (74-99) mg/dL Calcium (8.4-10.2) mg/dL Magnesium (1.6-2.3) mg/dL Total Bilirubin (0.2-1.3) mg/dL AST (17-59) U/L ALT (4-49) U/L Alkaline Phosphatase (38-126) U/L Troponin I <0.012 (0.000-0.034) ng/mL Total Protein (6.3-8.2) g/dL Albumin (3.5-5.0) g/dL Disposition Clinical Impression: Chest pain Disposition: ADMITTED IP TO THIS HOSP Condition: Fair Referrals: Angel Vazquez MD [Primary Care Provider] - 1-2 days Decision Time: 16:25
--- NOTE | 2022-08-17 15:31 | XR ---
EXAMINATION TYPE: XR chest 2V DATE OF EXAM: 08/17/2022 3:26 PM COMPARISON: CT chest 02/25/2016 TECHNIQUE: XR chest 2V Frontal and lateral views of the chest. CLINICAL INDICATION:Male, 72 years old with history of Chest Pain; FINDINGS: Lungs/Pleura: There is no evidence of pleural effusion, focal consolidation, or pneumothorax. Pulmonary vascularity: Unremarkable. Heart/mediastinum: Cardiomediastinal silhouette is unremarkable. Atherosclerotic calcifications are seen in the aorta. Musculoskeletal: No acute osseous pathology. Mild degenerative changes of the thoracic spine. Partial visualization of cervical fusion hardware. IMPRESSION: No acute cardiopulmonary disease/process.
[2022-08-17 15:32] LABS: INR 1.1 (<1.2); Partial Thromboplastin Time 24.3 sec (22.0-30.0); Prothrombin Time 11.3 sec (9.0-12.0)
[2022-08-17 15:33] LABS: ALT 31 U/L (4-49); AST 32 U/L (17-59); African American GFR (CKD) >90 (>60 ml/min/1.73 sqM); Albumin 4.2 g/dL (3.5-5.0); Alkaline Phosphatase 82 U/L (38-126); Anion Gap 9 mmol/L; Blood Urea Nitrogen 15 mg/dL (9-20); Calcium 8.6 mg/dL (8.4-10.2); Carbon Dioxide 26 mmol/L (22-30); Chloride 104 mmol/L (98-107); Glucose 102 mg/dL (74-99); Magnesium 2.1 mg/dL (1.6-2.3); Non-African American GFR(CKD) 87 (>60 ml/min/1.73 sqM); Potassium 4.2 mmol/L (3.5-5.1); Sodium 139 mmol/L (137-145); Total Bilirubin 0.5 mg/dL (0.2-1.3); Total Protein 7.3 g/dL (6.3-8.2)
[2022-08-17 15:46] LABS: HCT 43.9 % (39.0-53.0); HGB 15.3 gm/dL (13.0-17.5); MCH 30.1 pg (25.0-35.0); MCHC 34.8 g/dL (31.0-37.0); MCV 86.4 fL (80.0-100.0); Mean Platelet Volume 8.4; Platelet Count 269 k/uL (150-450); RBC 5.08 m/uL (4.30-5.90); RDW 13.2 % (11.5-15.5); WBC 6.6 k/uL (3.8-10.6)
[2022-08-17 16:09] LABS: Eosinophils # (M) 0.33 k/uL (0-0.7); Lymphocytes # (M) 1.39 k/uL (1.0-4.8); Neutrophils # (M) 4.69 k/uL (1.3-7.7); Neutrophils % (M) 71 %; Nucleated Red Blood Cells 0 /100 WBC (0-0); Total Cells Counted 100
[2022-08-17] MEDS ORDERED: NITROGLYCERIN SL TABS 0.4 MG TAB SUBLINGUAL PRN (17:09)
--- NOTE | 2022-08-17 18:43 | P.HPIM ---
History of Present Illness H&P Date: 08/17/22 72-year-old male with PMH of CAD, hypertension, dyslipidemia presents the ED for left-sided chest pain. Patient reports that he scheduled to have a CABG in August. He reports the pain to be burning in nature. Pain is nonradiating. He denies any nausea or diaphoresis. His symptoms have currently resolved after taking 4 chewable aspirins. He denies any headache, fever or chills, cough, shortness of breath, palpitations, changes in urination or bowel habits. No changes in appetite or weight. He denies any dizziness, numbness/weakness/tingling of the extremities. In the ED, he was noted to be hypertensive with BP of 177/92. Vital signs are otherwise stable. CBC was unremarkable. Coagulation panel within normal limits. CMP showed glucose of 102. Troponin was less than 0.012. EKG showed normal sinus rhythm. Chest x-ray within normal limits. Patient is admitted for chest pain, rule out acute coronary syndrome. Pertinent positives and negatives as discussed in HPI, a complete review of systems was performed and all other systems are negative. General: non toxic, no distress, appears at stated age Derm: warm, dry Head: atraumatic, normocephalic, symmetric Eyes: EOMI, no lid lag, anicteric sclera Mouth: no lip lesion, mucus membranes moist Cardiovascular: S1S2 reg, no murmur Lungs: CTA bilateral, no rhonchi, no rales , no accessory muscle use Abdominal: soft, nontender to palpation, no guarding, no appreciable organomegaly Ext: no gross muscle atrophy, no edema, no contractures Neuro: no focal neuro deficits Psych: Alert, oriented, appropriate affect Chest pain with history of CAD Chronic conditions: Hypertension, dyslipidemia, GERD Based on my assessment of this patient, this patient meets a high complexity level of care. I have reviewed the following employment consultant notes: None. I have reviewed the results of the following tests: CBC was unremarkable. Coagulation panel within normal limits. CMP showed glucose of 102. Troponin was less than 0.012. I have ordered the following tests: Repeat troponin ordered. I have discussed the care of this patient with the following independent historian: None. I have independently interpreted the following test below: EKG showed normal sinus rhythm. Chest x-ray within normal limits. I have discussed the management of this patient with the following physician: The case was discussed with ED physician and decision made to admit the patient for workup of chest pain. This patient has a high risk of morbidity due to the following reasons: Patient has an acute diagnosis of chest pain that poses a threat to life or bodily function. He is high risk. There are plans to perform CABG next month. Troponins were trended and ACS OB ruled out. Cardiology will be consulted for further management of this patient. Restart aspirin 81 mg by mouth daily. Restart Crestor 20 mg by mouth at bedtime. Restart losartan 25 mg by mouth daily. Restart metoprolol 25 mg by mouth daily. Telemetry monitoring will be ordered. Patient names his wide decision maker if she can't make decisions for himself. Patient would like to be full code. Lovenox SQ for DVT prophylaxis. Past Medical History Past Medical History: GERD/Reflux, Hearing Disorder / Deafness, Osteoarthritis (OA), Prostate Disorder Additional Past Medical History / Comment(s): SOB with activity recently. Hard of Hearing left ear. History of Any Multi-Drug Resistant Organisms: None Reported Past Surgical History: Hernia Repair, Orthopedic Surgery Additional Past Surgical History / Comment(s): LASER SX FOR BILAT VARICOSE VEINS, COLONOSCOPY, BILATERAL CTR, neck fusion. Past Anesthesia/Blood Transfusion Reactions: Previous Problems w/ Anesthesia Additional Past Anesthesia/Blood Transfusion Reaction / Comment(s): HAD 2 HOURS EPISODE OF SNEEZING AFTER 2ND CTR. After neck surgery had sinus issue. Past Psychological History: No Psychological Hx Reported Smoking Status: Never smoker Past Alcohol Use History: None Reported Past Drug Use History: None Reported - Past Family History Sister(s) Family Medical History: Cancer Medications and Allergies Home Medications Medication Instructions Recorded Confirmed Type Ascorbic Acid [Vitamin C] 1,000 mg PO HS 01/17/18 08/17/22 History Aspirin [Adult Low Dose Aspirin EC] 81 mg PO HS 01/17/18 08/17/22 History Omeprazole 20 mg PO DAILY 01/17/18 08/17/22 History Garlic 1 tab PO HS 01/23/21 08/17/22 History Mv-Mn/C/Glutamin/Lysin/Smna305 1 tablet PO DAILY 01/23/21 08/17/22 History [Airborne Gummies] Saw Marcus 500 mg PO HS 01/23/21 08/17/22 History Cholecalciferol [Vitamin D3 (25 50 mcg PO HS 08/17/22 08/17/22 History Mcg = 1000 Iu)] Diclofenac Sodium 50 mg PO BID 08/17/22 08/17/22 History Losartan [Cozaar] 25 mg PO DAILY 08/17/22 08/17/22 History Magnesium 250 mg PO HS 08/17/22 08/17/22 History Metoprolol Succinate [Metoprolol 25 mg PO DAILY 08/17/22 08/17/22 History Succinate ER] Rosuvastatin [Crestor] 20 mg PO HS 08/17/22 08/17/22 History Allergies Allergy/AdvReac Type Severity Reaction Status Date / Time celecoxib [From Celebrex] AdvReac BLE EDEMA Verified 01/24/21 09:35 Physical Exam Vitals: Vital Signs Temp Pulse Resp BP Pulse Ox 08/17/22 17:17 68 18 136/74 99 08/17/22 15:53 70 18 136/74 98 08/17/22 14:47 97 F L 70 18 177/92 Intake and Output 08/17/22 08/17/22 08/17/22 06:59 14:59 22:59 Other: Weight 102.058 kg Results CBC & Chem 7: 08/17/22 14:57 08/17/22 14:57 Labs: Abnormal Lab Results - Last 24 Hours (Table) 08/17/22 Range/Units 14:57 Glucose 102 H (74-99) mg/dL
[2022-08-17] MEDS ORDERED: ATORVASTATIN 40 MG TAB PO SCH (21:00)
[2022-08-18] MEDS ORDERED: PANTOPRAZOLE 40 MG TABLET PO SCH (07:30)
[2022-08-18 08:10] VITALS: RESP 16
[2022-08-18] MEDS ORDERED: LOSARTAN 25 MG TAB PO SCH (09:00)
[2022-08-18] MEDS ORDERED: ENOXAPARIN 40 MG/0.4 ML SYRINGE SQ SCH (09:00)
[2022-08-18] MEDS ORDERED: ASPIRIN 325 MG TAB PO SCH (09:00)
[2022-08-18] MEDS ORDERED: ASPIRIN 81 MG PO SCH ×2 (09:00)
[2022-08-18] MEDS ORDERED: ISOSORBIDE MONONITRATE ER 30 MG TAB.ER.24H PO SCH (09:00)
[2022-08-18] MEDS ORDERED: METOPROLOL SUCCINATE (ER) 25 MG TAB.ER.24H PO SCH (09:00)
--- NOTE | 2022-08-18 11:19 | P.GSCN ---
History of Present Illness Consult date: 08/18/22 Reason for Consult: Known to our service with plans for upcoming CABG Requesting physician: Jennifer Sheth History of present illness: This is a 72-year-old gentleman who follows outpatient with Dr. Angel Vazquez for primary care and Dr. Negron for cardiology. He has a previous medical history of known coronary artery disease, hypertension, hyperlipidemia, ablations to both lower extremity greater saphenous veins, and prostate disorder. This gentleman had been reporting recent shortness of breath with exertion and he underwent heart catheterization by Dr. Negron revealing severe triple vessel coronary artery disease. He was referred to Dr. Gastelum for recommendations regarding surgical revascularization with plans for 2 vessel CABG with arterial grafts placed to the left anterior descending coronary artery as well as circumflex coronary artery at [place] 09/01/2022. Unfortunately yesterday he had severe chest pain after heavy lifting at work. He reported to [facility] emergency room for evaluation and treatment. EKG demonstrated normal sinus rhythm. Troponins were negative 3. The patient was admitted overnight for observation with consultation placed to cardiology. Transthoracic ech ocardiogram was completed this morning. Consultation was placed for Dr. Gastelum as he is known to our service. Review of Systems Review of systems was completed and was negative except as noted - Cardiovascular Reports chest pain Past Medical History Past Medical History: Coronary Artery Disease (CAD), GERD/Reflux, Hearing Disorder / Deafness, Osteoarthritis (OA), Prostate Disorder Additional Past Medical History / Comment(s): SOB with activity recently. Hard of Hearing left ear. History of Any Multi-Drug Resistant Organisms: None Reported Past Surgical History: Hernia Repair, Orthopedic Surgery Additional Past Surgical History / Comment(s): LASER SX FOR BILAT VARICOSE VEINS, COLONOSCOPY, BILATERAL CTR, neck fusion. Past Anesthesia/Blood Transfusion Reactions: Previous Problems w/ Anesthesia Additional Past Anesthesia/Blood Transfusion Reaction / Comm: HAD 2 HOURS EPISODE OF SNEEZING AFTER 2ND CTR. After neck surgery had sinus issue. Past Psychological History: No Psychological Hx Reported Smoking Status: Never smoker Past Alcohol Use History: None Reported Past Drug Use History: None Reported - Past Family History Sister(s) Family Medical History: Cancer Medications and Allergies Home Medications Medication Instructions Recorded Confirmed Type Ascorbic Acid [Vitamin C] 1,000 mg PO HS 01/17/18 08/17/22 History Aspirin [Adult Low Dose Aspirin EC] 81 mg PO HS 01/17/18 08/17/22 History Omeprazole 20 mg PO DAILY 01/17/18 08/17/22 History Garlic 1 tab PO HS 01/23/21 08/17/22 History Mv-Mn/C/Glutamin/Lysin/Hhrr843 1 tablet PO DAILY 01/23/21 08/17/22 History [Airborne Gummies] Saw [place] 500 mg PO HS 01/23/21 08/17/22 History Cholecalciferol [Vitamin D3 (25 50 mcg PO HS 08/17/22 08/17/22 History Mcg = 1000 Iu)] Diclofenac Sodium 50 mg PO BID 08/17/22 08/17/22 History Losartan [Cozaar] 25 mg PO DAILY 08/17/22 08/17/22 History Magnesium 250 mg PO HS 08/17/22 08/17/22 History Metoprolol Succinate [Metoprolol 25 mg PO DAILY 08/17/22 08/17/22 History Succinate ER] Rosuvastatin [Crestor] 20 mg PO HS 08/17/22 08/17/22 History Allergies Allergy/AdvReac Type Severity Reaction Status Date / Time celecoxib [From Celebrex] AdvReac BLE EDEMA Verified 01/24/21 09:35 Surgical - Exam Vital Signs Temp Pulse Resp BP 97 F L 70 18 177/92 08/17/22 14:47 08/17/22 14:47 08/17/22 14:47 08/17/22 14:47 CONSTITUTIONAL: Awake and alert, appears comfortable, cooperative, well- developed, well-nourished, no pain, no acute distress EYES: Pupils equal, round, reactive to light, normal ocular movement ENT: Moist mucous membranes without oral lesions present NECK: No masses, no bruits, trachea midline RESPIRATORY: Lungs sounds clear to auscultation bilaterally. Respirations even, nonlabored. Currently on room air with oxygen saturation 98%. Strong cough. No chest wall deformities. No clubbing or cyanosis present CARDIOVASCULAR: S1, S2 present. Regular rate and rhythm, sinus rhythm on telemetry. Palpable peripheral pulses bilaterally. No edema present. No calf pain or tenderness noted. GASTROINTESTINAL: Abdomen soft, nontender, nondistended, obese without masses or organomegaly noted. There is no rebound or guarding present. Active bowel sounds present 4 quadrants. GENITOURINARY: Deferred INTEGUMENTARY: Skin is warm and dry with evidence of good perfusion. NEUROLOGIC: Cranial nerves II through XII intact, normal coordination, no obvious motor or sensory deficits, speech is normal MUSKULOSKELETAL: Able to move all extremities, strength equal bilaterally, normal posture PSYCHIATRIC: Alert and oriented to person place and time, appropriate affect, intact judgment and insight Results - Labs 08/17/22 14:57 08/17/22 14:57 Abnormal Lab Results - Last 24 Hours (Table) 08/17/22 Range/Units 14:57 Glucose 102 H (74-99) mg/dL Diabetes panel 08/17/22 Range/Units 14:57 Sodium 139 (137-145) mmol/L Potassium 4.2 (3.5-5.1) mmol/L Chloride 104 (98-107) mmol/L Carbon Dioxide 26 (22-30) mmol/L BUN 15 (9-20) mg/dL Creatinine 0.85 (0.66-1.25) mg/dL Glucose 102 H (74-99) mg/dL Calcium 8.6 (8.4-10.2) mg/dL AST 32 (17-59) U/L ALT 31 (4-49) U/L Alkaline Phosphatase 82 (38-126) U/L Total Protein 7.3 (6.3-8.2) g/dL Albumin 4.2 (3.5-5.0) g/dL Calcium panel 08/17/22 Range/Units 14:57 Calcium 8.6 (8.4-10.2) mg/dL Albumin 4.2 (3.5-5.0) g/dL Pituitary panel 08/17/22 Range/Units 14:57 Sodium 139 (137-145) mmol/L Potassium 4.2 (3.5-5.1) mmol/L Chloride 104 (98-107) mmol/L Carbon Dioxide 26 (22-30) mmol/L BUN 15 (9-20) mg/dL Creatinine 0.85 (0.66-1.25) mg/dL Glucose 102 H (74-99) mg/dL Calcium 8.6 (8.4-10.2) mg/dL Adrenal panel 08/17/22 Range/Units 14:57 Sodium 139 (137-145) mmol/L Potassium 4.2 (3.5-5.1) mmol/L Chloride 104 (98-107) mmol/L Carbon Dioxide 26 (22-30) mmol/L BUN 15 (9-20) mg/dL Creatinine 0.85 (0.66-1.25) mg/dL Glucose 102 H (74-99) mg/dL Calcium 8.6 (8.4-10.2) mg/dL Total Bilirubin 0.5 (0.2-1.3) mg/dL AST 32 (17-59) U/L ALT 31 (4-49) U/L Alkaline Phosphatase 82 (38-126) U/L Total Protein 7.3 (6.3-8.2) g/dL Albumin 4.2 (3.5-5.0) g/dL - Imaging Chest x-ray: report reviewed, image reviewed EKG: image reviewed Assessment and Plan Assessment: Chest pain Known coronary artery disease Hypertension Hyperlipidemia History of varicose veins with ablations to both lower extremity greater sap henous veins Prostate disorder Plan: The patient was seen and examined at the bedside. Chart/diagnostics were reviewed. The case was discussed in detail with Dr. Gastelum. Recommend continuing aspirin, statin, beta adele therapy. The patient is currently symptom free. Patient may be discharged home from cardiothoracic surgery standpoint when okay with other services. The patient should refrain from any stress to the heart including heavy lifting, this was discussed with the patient. Plan is still for two-vessel arterial graft CABG 09/01/[address] Gastelum. I have personally seen and examined the patient, performed the documentation and the assessment and plan as written. Number of minutes spent on the visit: 30. CAM Fortune The patient is a 72 y/o male, well-known to our service, who was found to have multi-vessel CAD. He is scheduled for CABG with Dr. Gastelum on 09/01/2022 at [facility]. He presented to the hospital yesterday after developing chest pain while lifting some heavy objects. Cardiac workup has been negative. Plan discharge from the hospital with outpatient surgical intervention as previously scheduled. I have personally seen and examined the patient, reviewed the documentation and the assessment and plan as written. Number of minutes spent on the visit: 45. Rolando De Leon M.D.
--- NOTE | 2022-08-18 11:24 | P.CRDCN ---
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 He has a past medical history of hypertension, gastroesophageal reflux disease, premature family history of CAD. Patient gives history that he recently underwent cardiac catheterization at [facility] and was then referred to cardiothoracic surgery, Dr. Gastelum. Patient has been scheduled for three-vessel CABG on September 01. We have been asked to evaluate the patient for chest pain. He states that he was at work yesterday and was feeling lightheaded and then developed left-sided chest pain that was under his left breast there was a burning type any was told by his coworkers that he looked flushed. At the time of this evaluation patient denies having any chest pain. EKG sinus rhythm with no acute ST changes. Chest x-ray: No acute process CBC within normal limits. INR 1.1. Electrolytes and renal function normal. Troponin negative 3. Liver function tests within normal limits. Home cardiac medications: Aspirin 81 mg daily, losartan 25 mg daily, magnesium 250 mg at bedtime, metoprolol succinate 25 mg daily, Crestor 20 mg at bedtime. Echocardiogram 06/2020: EF 55%, moderate concentric left hypertrophy, aortic sclerosis. Dobutamine stress test 10/20 normal at heart rate of 90% Carotid duplex 2020 less than 49% bilateral Review Of Systems: At the time of my evaluation: Constitutional: No fever, no chills. No weakness, fatigue or lethargy. EENT: No headache. No dizziness. Lungs: No shortness of breath, cough, no sputum production. No wheezing. Cardiovascular: No chest pain, no lower extremity edema. No palpitations. No paroxysmal nocturnal dyspnea. No orthopnea. No lightheadedness or dizziness. No syncopal episodes. Abdominal: No abdominal pain. No nausea, vomiting. No diarrhea. No constipation. No bloody or tarry stools. Genitourinary: No dysuria.. No urinary retention. Musculoskeletal: No myalgias. No muscle weakness, no frequent falls. No back pain. No neck pain. Integumentary: No wounds. No rash. No unusual bruising. Neurologic: No aphasia. No facial droop. No change in mentation. No head injury. No headache. Physical examination: Gen: This is a 72-year-old male, resting in bed and appears to be comfortable and in no acute distress VS: reviewed HEENT: Head is atraumatic, normocephalic. Pupils equal, round. Sclerae is anicteric. NECK: Supple. No JVD. . LUNGS: Clear to auscultation. No wheezes or rhonchi. No intercostal retraction s. HEART: Regular rate and rhythm. No murmur. ABDOMEN: Soft No tenderness. EXTREMITIES: No pedal edema. No calf tenderness. NEUROLOGICAL: Patient is awake, alert and oriented x3. Assessment: Chest pain, acute coronary syndrome ruled out by normal EKG and troponins. Coronary artery disease scheduled for three-vessel CABG 09/01 Hypertension Gastroesophageal reflux disease Plan: Resume patient's home cardiac medications Consult cardiothoracic surgery Obtain 2-D echocardiogram and Doppler study to assess cardiac structure and function Obtain records from [facility] Further recommendations to follow based upon clinical course Thank you kindly for this consultation. Nurse practitioner note has been reviewed, I agree with documented findings and plan of care. Patient was seen and examined. Past Medical History Past Medical History: GERD/Reflux, Hearing Disorder / Deafness, Osteoarthritis (OA), Prostate Disorder Additional Past Medical History / Comment(s): SOB with activity recently. Hard of Hearing left ear. History of Any Multi-Drug Resistant Organisms: None Reported Past Surgical History: Hernia Repair, Orthopedic Surgery Additional Past Surgical History / Comment(s): LASER SX FOR BILAT VARICOSE VEINS, COLONOSCOPY, BILATERAL CTR, neck fusion. Past Anesthesia/Blood Transfusion Reactions: Previous Problems w/ Anesthesia Additional Past Anesthesia/Blood Transfusion Reaction / Comment(s): HAD 2 HOURS EPISODE OF SNEEZING AFTER 2ND CTR. After neck surgery had sinus issue. Past Psychological History: No Psychological Hx Reported Smoking Status: Never smoker Past Alcohol Use History: None Reported Past Drug Use History: None Reported - Past Family History Sister(s) Family Medical History: Cancer Medications and Allergies Home Medications Medication Instructions Recorded Confirmed Type Ascorbic Acid [Vitamin C] 1,000 mg PO HS 01/17/18 08/17/22 History Aspirin [Adult Low Dose Aspirin EC] 81 mg PO HS 01/17/18 08/17/22 History Omeprazole 20 mg PO DAILY 01/17/18 08/17/22 History Garlic 1 tab PO HS 01/23/21 08/17/22 History Mv-Mn/C/Glutamin/Lysin/Bsuc115 1 tablet PO DAILY 01/23/21 08/17/22 History [Airborne Gummies] Saw Melrude 500 mg PO HS 01/23/21 08/17/22 History Cholecalciferol [Vitamin D3 (25 50 mcg PO HS 08/17/22 08/17/22 History Mcg = 1000 Iu)] Diclofenac Sodium 50 mg PO BID 08/17/22 08/17/22 History Losartan [Cozaar] 25 mg PO DAILY 08/17/22 08/17/22 History Magnesium 250 mg PO HS 08/17/22 08/17/22 History Metoprolol Succinate [Metoprolol 25 mg PO DAILY 08/17/22 08/17/22 History Succinate ER] Rosuvastatin [Crestor] 20 mg PO HS 08/17/22 08/17/22 History Allergies Allergy/AdvReac Type Severity Reaction Status Date / Time celecoxib [From Celebrex] AdvReac BLE EDEMA Verified 01/24/21 09:35 Physical Exam Vitals: Vital Signs Temp Pulse Resp BP Pulse Ox 08/18/22 05:13 64 17 128/81 97 08/18/22 02:10 63 130/74 95 08/17/22 22:50 68 18 153/83 97 08/17/22 21:09 73 18 150/78 97 08/17/22 19:30 68 18 150/78 98 08/17/22 19:18 98.3 F 66 16 139/79 99 08/17/22 17:17 68 18 136/74 99 08/17/22 15:53 70 18 136/74 98 08/17/22 14:47 97 F L 70 18 177/92 Results 08/17/22 14:57 08/17/22 14:57 Cardiac Enzymes 08/17/22 08/17/22 08/17/22 Range/Units 14:57 14:57 18:15 AST 32 (17-59) U/L Troponin I <0.012 <0.012 (0.000-0.034) ng/mL 08/17/22 Range/Units 20:59 AST (17-59) U/L Troponin I <0.012 (0.000-0.034) ng/mL Coagulation 08/17/22 Range/Units 14:57 PT 11.3 (9.0-12.0) sec APTT 24.3 (22.0-30.0) sec CBC 08/17/22 Range/Units 14:57 WBC 6.6 (3.8-10.6) k/uL RBC 5.08 (4.30-5.90) m/uL Hgb 15.3 (13.0-17.5) gm/dL Hct 43.9 (39.0-53.0) % Plt Count 269 (150-450) k/uL Comprehensive Metabolic Panel 08/17/22 Range/Units 14:57 Sodium 139 (137-145) mmol/L Potassium 4.2 (3.5-5.1) mmol/L Chloride 104 (98-107) mmol/L Carbon Dioxide 26 (22-30) mmol/L BUN 15 (9-20) mg/dL Creatinine 0.85 (0.66-1.25) mg/dL Glucose 102 H (74-99) mg/dL Calcium 8.6 (8.4-10.2) mg/dL AST 32 (17-59) U/L ALT 31 (4-49) U/L Alkaline Phosphatase 82 (38-126) U/L Total Protein 7.3 (6.3-8.2) g/dL Albumin 4.2 (3.5-5.0) g/dL Current Medications Generic Name Dose Route Start Last Admin Trade Name Freq PRN Reason Stop Dose Admin Aspirin 81 mg 08/18/22 09:00 Aspirin 81 Mg PO DAILY [facility] Atorvastatin Calcium 40 mg 08/17/22 21:00 08/17/22 21:08 Atorvastatin 40 Mg Tab PO 40 mg HS TAMERA Administration Enoxaparin Sodium 40 mg 08/18/22 09:00 Enoxaparin 40 Mg/0.4 Ml Syringe SQ DAILY [facility] Losartan Potassium 25 mg 08/18/22 09:00 Losartan 25 Mg Tab PO DAILY [facility] Metoprolol Succinate 25 mg 08/18/22 09:00 Metoprolol Succinate (Er) 25 Mg Tab.Er.24h PO DAILY [facility] Nitroglycerin 0.4 mg 08/17/22 17:09 Nitroglycerin Sl Tabs 0.4 Mg Tab SUBLINGUAL Q5M PRN Chest Pain Pantoprazole Sodium 40 mg 08/18/22 07:30 Pantoprazole 40 Mg Tablet PO AC-BRKFST [facility] 08/17/22 14:57 08/17/22 14:57
--- NOTE | 2022-08-18 12:12 | CA ---
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 18 - 58 / 22 - 52 cm??? M-MODE Aortic Root Diameter MM 3.5 cm LA Systolic Diameter MM 5.2 cm LA Ao Ratio MM 1.5 AV Cusp Separation MM 1.9 cm DOPPLER AV Peak Velocity 172.4 cm/s AV Peak Gradient 11.9 mmHg AV Mean Velocity 118.1 cm/s AV Mean Gradient 6.3 mmHg AV Velocity Time Integral 35.4 cm MV Area PHT 3.0 cm??? Mitral E Point Velocity 55.4 cm/s Mitral A Point Velocity 77.7 cm/s Mitral E to A Ratio 0.7 MV Deceleration Time 251.5 ms MV E' Velocity 8.9 cm/s Mitral E to MV E' Ratio 6.2 TR Peak Velocity 241.2 cm/s TR Peak Gradient 23.3 mmHg Right Ventricular Systolic Press 26.7 mmHg FINDINGS Left Ventricle Mildly increased left ventricular wall thickness. Left ventricular cavity size normal. Normal left ventricular systolic function with no obvious regional wall motion abnormalities. Left ventricular ejection fraction is estimated at 55-60 %. Right Ventricle Moderate right ventricular dilatation. Right ventricular systolic pressure within normal limits. Right Atrium Normal right atrial size. Left Atrium Normal left atrial size. Mitral Valve Structurally normal mitral valve. Mitral annular calcification. Mitral valve thickened. Centrally directed mitral regurgitation jet. Mild mitral regurgitation. Aortic Valve No aortic stenosis. No aortic regurgitation. Thickened aortic valve without stenosis. Aortic valve sclerosis. Tricuspid Valve Structurally normal tricuspid valve. Mild tricuspid regurgitation. Pulmonic Valve Structurally normal pulmonic valve. Trace pulmonic regurgitation. Pericardium No pericardial effusion. Aorta Normal size aortic root and proximal ascending aorta. CONCLUSIONS Normal LV systolic function Mild mitral regurgitation Thickened and calcified aortic valve without any stenosis or regurgitation Previewed by: Dr. Stephen Drew MD (Electronically Signed) Final Date: 18 August 2022 12:11
[2022-08-18 14:15] VITALS: BP 121/60; PULSE 61; TEMP 97.7
--- NOTE | 2022-08-18 14:34 | P.DS ---
Providers Date of admission: 08/17/22 17:09 Expected date of discharge: 08/18/22 Attending physician: Ben Payton MD Consults: 08/17/22 17:09 Consult Physician Urgent Consulting Provider: Aguilar Saini Consult Reason/Comments: chest pain Do you want consulting provider notified?: Yes 08/18/22 08:00 Consult Physician Routine Consulting Provider: Edd Gastelum Consult Reason/Comments: CABG scheduled for 09/01, CP Do you want consulting provider notified?: Yes Primary care physician: Angel Vazquez [facility] Course: Discharge Diagnosis: Chest pain, acute coronary event ruled out. Previously known triple-vessel coronary artery disease scheduled to undergo CABG 2 with arterial grafts to the left anterior descending coronary artery as well as circumflex coronary artery at [facility] on 09/01/22. Hypertensive urgency, resolved blood pressure stable upon discharge 121/60 with heart rate of 61. Hyperlipidemia Hospital Course: Patient is a very pleasant 72-year-old gentleman who follows outpatient with Dr. Angel Vazquez for primary care and Dr. Negron for cardiology. He has a previous medical history of known coronary artery disease, hypertension, hyperlipidemia, ablations to both lower extremity greater saphenous veins, and prostate disorder. This gentleman had been reporting recent shortness of breath with exertion and he underwent heart catheterization by Dr. Negron revealing severe triple vessel coronary artery disease and he was recommended for surgical revascularization.. Pt was referred to Dr. Gastelum for and after evaluation he is scheduled to undergo 2 vessel CABG with arterial grafts placed to the left anterior descending coronary artery as well as circumflex coronary artery at [place] 09/01/2022. However, patient presented to the emergency department on 08/17/22 with a chief complaint of sudden onset chest pain. Patient was at work and doing some heavy lifting and suddenly began feeling pain to mid sternal chest pain came to the emergency department for evaluation. Upon arrival to the emergency department patient was found to be hypertensive with blood pressure 177/92 and heart rate of 70. EKG completed showing normal sinus rhythm at 65 beats per minute with no noted T-wave or ST abnormalities showing no signs of acute ischemia upon personal review and interpretation. Labs completed and reviewed. CBC, coags, and CMP were unremarkable. Troponin negative at less than 0.012. Patient was admitted overnight under services to observation unit with telemetry. Cardiology and cardiothoracic surgery was consulted. Troponins trended overnight all negative at less than 0.0123 draws. Echocardiogram was completed showing normal EF of 50-55% with mild mitral regurgitation. Patient was cleared by both cardiology and cardiothoracic surgery and to follow up outpatient with cardiothoracic surgeon as scheduled. Patient is currently free from any chest pain or discomfort. He was started on Imdur 30 mg daily. Hypertension significantly improved with BP upon discharge 121/60 with heart rate of 61. Patient medically stable for discharge. Physical Examination: Patient seen and examined at bedside. Vital signs reviewed and stable. General: Nontoxic, no distress and appears stated age. Derm: Skin warm and dry, normal coloration for ethnicity. Head: Atraumatic, normocephalic and symmetric. Eyes: EOMs intact, no lid lag, and anicteric sclera Mouth: no lip lesions, mucus membranes moist Cardiovascular: regular rate and rhythm with normal S1S2, no murmur, positive posterior tibial pulses bilaterally, and cap refill < 2 seconds. Lungs: Respirations even, regular, and unlabored on room air. Lungs CTA bilaterally, no rhonchi, no rales, no wheezing, and no accessory muscle usage. Abdominal: soft, nontender to palpation, no guarding, no appreciable organomegaly Ext: ROM intact. No gross muscle atrophy, no edema, no contractures Neuro: Speech clear, face symmetrical and CN II-XII grossly intact with no noted focal neuro deficits Psych: Alert and oriented to person, place, time, and situation. Appropriate and pleasant affect. A total of 31 minutes of time were spent preparing this complex discharge summary. Pt was discharged on 08/18/22 at 2:33 PM. Patient was seen independently by Nurse Practitioner. This document was prepared using [employer] dictation software. Please allow for errors in sample patternmaker while rare they do occur. Elmer Ramey NP rendered care for this patient independently, reviewed the findings and plan as documented in the note above. I did not physically speak with or examine the patient on this date. Patient Condition at Discharge: Stable Plan - Discharge Summary Discharge Rx Participant: No New Discharge Prescriptions: New Isosorbide Mononitrate ER [Imdur] 30 mg PO DAILY 30 Days #30 tab Continue Ascorbic Acid [Vitamin C] 1,000 mg PO HS Omeprazole 20 mg PO DAILY Aspirin [Adult Low Dose Aspirin EC] 81 mg PO HS Mv-Mn/C/Glutamin/Lysin/Qxre503 [Airborne Gummies] 1 tablet PO DAILY Garlic 1 tab PO HS Cholecalciferol [Vitamin D3 (25 Mcg = 1000 Iu)] 50 mcg PO HS Diclofenac Sodium 50 mg PO BID Magnesium 250 mg PO HS Metoprolol Succinate [Metoprolol Succinate ER] 25 mg PO DAILY Rosuvastatin [Crestor] 20 mg PO HS [place] 500 mg PO HS Losartan [Cozaar] 25 mg PO DAILY Discharge Medication List Ascorbic Acid [Vitamin C] 1,000 mg PO HS 01/17/18 [History] Aspirin [Adult Low Dose Aspirin EC] 81 mg PO HS 01/17/18 [History] Omeprazole 20 mg PO DAILY 01/17/18 [History] Garlic 1 tab PO HS 01/23/21 [History] Mv-Mn/C/Glutamin/Lysin/Qbys069 [Airborne Gummies] 1 tablet PO DAILY 01/23/21 [History] [place] 500 mg PO HS 01/23/21 [History] Cholecalciferol [Vitamin D3 (25 Mcg = 1000 Iu)] 50 mcg PO HS 08/17/22 [History] Diclofenac Sodium 50 mg PO BID 08/17/22 [History] Losartan [Cozaar] 25 mg PO DAILY 08/17/22 [History] Magnesium 250 mg PO HS 08/17/22 [History] Metoprolol Succinate [Metoprolol Succinate ER] 25 mg PO DAILY 08/17/22 [History] Rosuvastatin [Crestor] 20 mg PO HS 08/17/22 [History] Isosorbide Mononitrate ER [Imdur] 30 mg PO DAILY 30 Days #30 tab 08/18/22 [Rx] Follow up Appointment(s)/Referral(s): Angel Vazquez MD [Primary Care Provider] - 1-2 days Activity/Diet/Wound Care/Special Instructions: Activity: As tolerated. Take breaks as needed. Diet: Heart healthy and carb consistent diet. Avoid salts, or foods with hidden salts such as canned or boxed foods and frozen dinners. Extra salt makes your heart work harder and traps the fluid in your body for longer. Special Instructions: Take all of your medications as directed and remember to keep all of your doctor's appointments and follow-up as needed. Follow-up as scheduled with your operational communication chief and cardiothoracic surgeon with [facility]. At this time recommend proceeding with scheduled surgical revascularization on 09/01/22. As we discussed, it is important for you to discuss her medications with your operational communication chief and cardiothoracic surgeon to determine what medications they want to hold prior to surgical procedure. Thank you for allowing us to participate in your care, it was truly a pleasure having you for our patient!!! Discharge Disposition: HOME SELF-CARE
[2022-08-18 16:29] LABS: Chol/HDL Ratio 3.59 Ratio; LDL Cholesterol,Calculated 48.1 mg/dL (0.0-131.0)
[2022-08-18] MEDS ORDERED: MAGNESIUM OXIDE 400 MG TAB PO SCH (21:00)
== END 2022-08-18 15:47 | disposition home or self-care (01) ==
LOC: EC 14:44 → 6NMEDSUR 17:09
PROVIDERS: ADMIT Family Medicine; ATTEND Family Medicine
DX: R07.9 Chest pain, unspecified (principal); I16.0 Hypertensive urgency; I25.10 Atherosclerotic heart disease of native coronary artery without angina pectoris; E78.5 Hyperlipidemia, unspecified; K21.9 Gastro-esophageal reflux disease without esophagitis; H91.92 Unspecified hearing loss, left ear; M19.90 Unspecified osteoarthritis, unspecified site; N42.9 Disorder of prostate, unspecified; Z98.1 Arthrodesis status; Z98.890 Other specified postprocedural states; Z80.9 Family history of malignant neoplasm, unspecified; Z79.82 Long term (current) use of aspirin; Z79.899 Other long term (current) drug therapy; Z88.8 Allergy status to other drugs, medicaments and biological substances
CPT/HCPCS: 96372; 99285; 36415; 93005; 93306; 80061; 80053; 83735; 84484; 85025; 85610; 85730; 71046; G0378; J1650

== ENCOUNTER → 2023-03-26 | Outpatient (CLI) | payer MEDICARE ==
[2023-03-26 16:20] LABS: Basophils # (A) 0.06 X 10*3/uL (0.00-0.10); Eosinophils # (A) 0.09 X 10*3/uL (0.04-0.35); Eosinophils % (A) 1.5 %; HCT 45.3 % (39.6-50.0); HGB 14.4 g/dL (13.0-17.0); Lymphocytes # (A) 1.05 X 10*3/uL (0.90-5.00); Lymphocytes % (A) 17.8 %; MCHC 31.8 g/dL (32.0-37.0); MCV 91.1 FL (80.0-97.0); Mean Platelet Volume 10.3 FL (9.5-12.2); Monocytes # (A) 0.59 X 10*3/uL (0.20-1.00); NRBC Per 100 WBC 0 X 10*3/uL (0.00-0.01); Neutrophils % (A) 69.4 %; Platelet Count 254 X 10*3/uL (140-440); RBC 4.97 X 10*6/uL (4.40-5.60); WBC 5.91 X 10*3/uL (4.50-10.00)
== END | disposition home or self-care (01) ==
LOC: LABPAT 11:15
PROVIDERS: ATTEND Surgery
DX: Z01.818 Encounter for other preprocedural examination (principal); K40.90 Unilateral inguinal hernia, without obstruction or gangrene, not specified as recurrent; R94.31 Abnormal electrocardiogram [ECG] [EKG]; R00.1 Bradycardia, unspecified
CPT/HCPCS: 36415; 85025; 86850; 86900; 86901; 93005

== ENCOUNTER 2023-04-05 07:45 | Day surgery (SDC) | payer MEDICARE ==
--- NOTE | 2023-04-05 07:38 | P.GSHP ---
History of Present Illness H&P Date: 04/05/23 Chief Complaint: Right inguinal hernia 72-year-old male seen in the office several months ago. Patient with complaints of a bulge right groin. Increasing in size. Mild pain at times. History of prior hernia repair on the left many years ago. Past Medical History Past Medical History: Atrial Fibrillation, Coronary Artery Disease (CAD), COPD, GERD/Reflux, Hearing Disorder / Deafness, Hyperlipidemia, Hypertension, Osteoarthritis (OA) Additional Past Medical History / Comment(s): L leg larger than R leg/cause unknown, [place] bilaterally. History of Any Multi-Drug Resistant Organisms: None Reported Past Surgical History: Coronary Bypass/CABG, Heart Catheterization, Hernia Repair, Orthopedic Surgery Additional Past Surgical History / Comment(s): 08/2022 cabg 2 vessel, CANDACE, LASER SX FOR BILAT VARICOSE VEINS, COLONOSCOPY, BILATERAL CTR, neck fusion, R foot fusion. Past Anesthesia/Blood Transfusion Reactions: Previous Problems w/ Anesthesia Additional Past Anesthesia/Blood Transfusion Reaction / Comment(s): HAD 2 HOURS EPISODE OF SNEEZING AFTER 2ND CTR. After neck surgery had sinus issue. Smoking Status: Never smoker - Past Family History Sister(s) Family Medical History: Cancer Medications and Allergies Home Medications Medication Instructions Recorded Confirmed Type Ascorbic Acid [Vitamin C] 1,000 mg PO QAM 01/17/18 03/24/23 History Aspirin [Adult Low Dose Aspirin EC] 81 mg PO QAM 01/17/18 03/24/23 History Cholecalciferol [Vitamin D3 (25 50 mcg PO QAM 08/17/22 03/24/23 History Mcg = 1000 Iu)] Metoprolol Succinate [Metoprolol 50 mg PO BID 08/17/22 03/24/23 History Succinate ER] Rosuvastatin [Crestor] 20 mg PO HS 08/17/22 03/24/23 History Apixaban [Eliquis] 5 mg PO BID 03/24/23 03/24/23 History Multivitamins, Thera [Multivitamin 1 tab PO QAM 03/24/23 03/24/23 History (formulary)] Pantoprazole [Protonix] 40 mg PO QAM 03/24/23 03/24/23 History Tamsulosin [Flomax] 0.4 mg PO DAILY PRN 03/24/23 03/24/23 History amLODIPine [Norvasc] 2.5 mg PO QAM 03/24/23 03/24/23 History Allergies Allergy/AdvReac Type Severity Reaction Status Date / Time celecoxib [From Celebrex] AdvReac BLE EDEMA Verified 03/24/23 08:42 Surgical - Exam Physical exam: General: Well-developed, well-nourished HEENT: Normocephalic, sclerae nonicteric Abdomen: Nontender, nondistended, reducible moderate to large size right inguinal hernia Extremities: No edema Neuro: Alert and oriented Assessment and Plan (1) Right inguinal hernia Narrative/Plan: 72-year-old male with right inguinal hernia. We'll proceed with da Ralph assisted laparoscopic repair right inguinal hernia with mesh, possible open, possible bilateral. Risks of bleeding, infection, recurrence, bladder and bowel injury, numbness, nerve injury, conversion to an open procedure were discussed with the patient. The patient understands and wishes to proceed. Status: Acute Code(s): K40.90 - UNIL INGUINAL HERNIA, W/O OBST OR GANGR, NOT SPCF RECUR SNOMED Code(s): 492928101
[~2023-04-05 07:45] MED LIST changes: +ACETAMINOPHEN TAB 500 MG TAB PO PRN; -DEXAMETHASONE SOD PHOSPHATE 4 MG/ML 1 ML VIAL IV ONE; +HEPARIN SODIUM,PORCINE/PF 5,000 UNIT/0.5 ML SYRINGE SQ PRN; -HYDROmorphone 0.5 MG/0.5 ML SYRINGE IVP PRN; -LACTATED RINGERS 1,000 ML IV SCH; -MIDAZOLAM 2 MG/2 ML VIAL IV PRN; -ONDANSETRON 4 MG/2 ML VIAL IVP ONE
[2023-04-05] MEDS ORDERED: MIDAZOLAM 2 MG/2 ML VIAL IV PRN (07:46)
[2023-04-05] MEDS ORDERED: DEXAMETHASONE SOD PHOSPHATE 4 MG/ML 1 ML VIAL IV ONE (07:46)
[2023-04-05] MEDS ORDERED: HYDROmorphone 0.5 MG/0.5 ML SYRINGE IVP PRN (07:46)
[2023-04-05] MEDS ORDERED: LACTATED RINGERS 1,000 ML IV SCH (07:46)
[2023-04-05] MEDS ORDERED: ONDANSETRON 4 MG/2 ML VIAL IVP ONE (07:46)
[2023-04-05] MEDS ORDERED: TAMSULOSIN 0.4 MG CAP.ER.24H PO STA (09:30)
[2023-04-05] MEDS ORDERED: PROPOFOL 10 MG/ML 20 ML VIAL IV ONE (09:47)
[2023-04-05] MEDS ORDERED: SUCCINYLCHOLINE CHLORIDE 200 MG/10 ML VIAL IV ONE (09:47)
[2023-04-05] MEDS ORDERED: ROCURONIUM 10 MG/ML (5 ML VIAL) IV ONE (09:47)
[2023-04-05] MEDS ORDERED: fentaNYL (PF) 50 MCG/ML 2 ML AMP ONE (09:47)
[2023-04-05] MEDS ORDERED: MIDAZOLAM 2 MG/2 ML VIAL ONE (09:47)
[2023-04-05] MEDS ORDERED: GLYCOPYRROLATE 0.2 MG/ML 2 ML VIAL ONE (09:47)
[2023-04-05] MEDS ORDERED: PHENYLEPHRINE-0.9% NACL SYG 1,000 MCG/10 ML SYRINGE ONE (09:47)
[2023-04-05] MEDS ORDERED: NEOSTIGMINE 1 MG/ML 10 ML VIAL ONE (09:47)
[2023-04-05] MEDS ORDERED: BUPIVACAINE (PF) 0.25% 30 ML VIAL SQ ONE (09:51)
[2023-04-05] MEDS ORDERED: LACTATED RINGERS 1,000 ML IV ONE (11:28)
--- NOTE | 2023-04-05 11:42 | P.OP ---
Date of Procedure: 04/05/23 Procedure(s) Performed: PREOPERATIVE DIAGNOSIS: Right inguinal hernia POSTOPERATIVE DIAGNOSIS: Large right indirect inguinal hernia PROCEDURE: Laparoscopic da Ralph assisted repair right inguinal hernia with mesh SURGEON: Dr. Loja ANESTHESIA: General OPERATIVE PROCEDURE DETAILS: Patient was placed in the operating table in the supine position. The patient was placed under general anesthesia. The abdomen was prepped and draped in usual sterile fashion. A small curvilinear supraumbilical incision was made. The fascia was retracted anteriorly with [place] forceps. The Veress needle was inserted. The saline drop test was normal. Insufflation took place to 15 mmHg. An 8 mm trocar was placed into the peritoneal cavity. 2 additional 8 mm trochars were placed in the right upper quadrant and left upper quadrant under visualization. The robotic arms were then brought in and docked into place. The fenestrated bipolar was used in the left arm and the laparoscopic tuan was utilized in the right arm. A 30 8 mm scope was used in the up position. The peritoneal cavity was inspected. A l arge indirect hernia was seen on the right-hand side. No hernia was seen on the left. The peritoneum was incised in a horizontal fashion cephalad to the internal inguinal ring. Following that careful dissection of the preperitoneal space took place. This took place using both electrocautery, sharp dissection but primarily blunt dissection. Visualization of the pubic tubercle and Rocky's ligament took place medially. Full dissection took place laterally as well. The indirect hernia sac was fully dissected. Once we had adequate space the 16 x 12 cm Progrip mesh was advanced into the preperitoneal space and flattened out appropriately to cover all potential hernia sites. The mesh was sutured medially to the Rocky's ligament in a running fashion and then superiorly along the midline. The peritoneal defect was then closed using a absorbable 2-0 VLok suture. The hernia sac was incorporated into the peritoneal closure to help prevent future recurrence. The pneumoperitoneum was then evacuated. The skin of all 3 sites was closed using a 4-0 Monocryl stitch. Skin glue was then applied. TYPE OF MESH USED: 16 x 12 cm progrip LOCATION OF MESH: Sub-lay FIXATION: A absorbable 30V LOC PREOPERATIVE DISCUSSION ON SMOKING CESSASTION: Yes PREOPERATIVE DISCUSSION ON MORBID OBESITY: Yes PREOPERATIVE DISCUSSION ON APPROPRIATE USE OF NARCOTIC USE: Yes PREOPERATIVE EDUCATION: Multi Modal, Smoking Cessation and Weight Loss with BMI over 35. DISPOSITION: Stable to recovery room
[2023-04-05] MEDS ORDERED: ACETAMINOPHEN TAB 325 MG TAB PO SCH (12:00)
[2023-04-05 12:01] VITALS: TEMP 97.6
[2023-04-05 13:58] VITALS: RESP 16
[2023-04-05 14:47] VITALS: BP 108/62; PULSE 66
[2023-04-05] MEDS ORDERED: IBUPROFEN 600 MG TAB PO SCH (15:00)
[2023-04-05] MEDS ORDERED: TAMSULOSIN 0.4 MG CAP.ER.24H PO ONE (16:00)
== END 2023-04-05 16:13 | disposition home or self-care (01) ==
LOC: OR 07:45
PROVIDERS: ATTEND Surgery
DX: K40.90 Unilateral inguinal hernia, without obstruction or gangrene, not specified as recurrent (principal); M19.90 Unspecified osteoarthritis, unspecified site; I10 Essential (primary) hypertension; I25.10 Atherosclerotic heart disease of native coronary artery without angina pectoris; J44.9 Chronic obstructive pulmonary disease, unspecified; K21.9 Gastro-esophageal reflux disease without esophagitis; I48.91 Unspecified atrial fibrillation; Z88.6 Allergy status to analgesic agent; Z95.1 Presence of aortocoronary bypass graft; Z79.01 Long term (current) use of anticoagulants; Z79.899 Other long term (current) drug therapy
CPT/HCPCS: 49650; S2900